=== PATIENT | female | born 1960 | race Caucasian/White ===

== ENCOUNTER → 2017-11-08 07:55 | Outpatient (CLI) | payer BC, SELFPAY ==
--- NOTE | 2017-11-08 08:30 | MRI_ITS ---
STUDY: MRI BRAIN WITH AND WITHOUT CONTRAST REASON FOR EXAM: Female, 57 years old. Ataxia, hearing loss, tinnitus the bilateral ureters TECHNIQUE: Standardized multiplanar fat and water weighted pulse sequences were obtained. 10 ml of Gadavist contrast material was administered intravenously for the contrast portion of the examination. COMPARISON: None. FINDINGS: There is mild cerebral atrophy with widening of the extra-axial spaces and ventricular dilatation. There are a limited number of small white matter hyperintensities, distributed throughout the deep white matter tracts of the cerebral hemispheres, consistent with mild chronic white matter ischemic changes. There is no evidence for recent intracranial ischemia or other cause of cytotoxic edema on diffusion weighted imaging (DWI). Normal bilateral basal ganglia. Normal thalami. There is no extra-axial fluid accumulation. Normal flow voids within the major intracranial circulation suggesting patency by spin echo criteria. Normal venous enhancement. There is no enhancing intra-axial or extra-axial abnormality. Normal sella turcica, pituitary gland, infundibular stalk, optic chiasm and hypothalamus. Normal tectal plate and pineal gland. Normal midbrain, denisse and medulla. Normal cerebellum. Normal basal cisterns. Normal bilateral temporal bones. Normal bilateral internal auditory canals. No demonstrated orbital abnormality, within the constraints of a routine brain study. Mucosal thickening and fluid layering of the right maxillary sinus is present with near complete opacification. Normal calvarium and skull base. Normal visualized soft tissue structures. Normal visualized upper cervical spine. MRI/Brain W/WO Contrast IMPRESSION: 1. Senescent changes with no evidence of acute intracranial bleed, mass or ischemia. 2. No evidence of IAC abnormality or abnormal enhancement. 3. Right maxillary sinus disease, clinically correlate for congestive versus inflammatory process. Electronically Signed: Cesar Dominguez DO at 10:09 EDT , Service support ,
== END ==
PROVIDERS: Visit Provider Otolaryngology Otolaryngology/Facial Plastic Surgery
DX: H91.90 Unspecified hearing loss, unspecified ear (principal); H93.19 Tinnitus, unspecified ear; R27.0 Ataxia, unspecified
CPT/HCPCS: 70553; A9585

== ENCOUNTER → 2018-04-13 12:01 | Outpatient (CLI) | payer BC, SELFPAY ==
[2018-04-13 11:29] VITALS: BMI 33.0
[2018-04-13 12:51] LABS: Absolute Neutrophil Count 4.5 X10^3/uL (2.0-7.7); Basophil# 0.02 X10^3/uL; Basophil% 0.3 % (0-1); Eosinophil# 0.15 X10^3/uL; Eosinophils% 1.9 % (0-5); Hematocrit 42.9 % (37-47); Hemoglobin 13.8 g/dl (12.0-15.0); Lymphocyte % 36.5 % (19-41); Mean Corp Hgb Conc 32.2 g/gl (32-36); Mean Corpuscular Hgb 29.7 pg (27.0-32.0); Mean Corpuscular Volume 92.3 fL (81-99); Mean Platelet Vol. 9.7 fl (6.2-12.0); Monocyte# 0.38 X10^3/uL; Monocyte% 4.8 % (0-10); Neutrophil # 4.49 X10^3/uL (2.7-7.7); Neutrophil % 56.4 % (47-70); Platelet Count 227 K/mm3 (150-450); RBC Distribution Width CV 13.6 % (11.6-14.6); RBC Distribution Width SD 45.6 fl (35.1-43.9); Red Blood Count 4.65 M/mm3 (4.2-5.4)
[2018-04-13 12:58] LABS: POSITIVE COUNT NO; POSITIVE DIFFERENTIAL NO; POSITIVE MORPHOLOGY NO
[2018-04-13 13:03] LABS: Hemoglobin A1c 7.1 % (4.2-6.3)
[2018-04-13 13:21] LABS: ALB/GLOB Ratio 0.9 RATIO (0.9-2.4); AST(SGOT) 15 U/L (15-37); Alanine Aminotransfer ALT/SGPT 22 U/L (13-56); Albumin, Serum 3.7 g/dL (3.2-5.0); Alkaline Phosphatase 108 U/L (45-117); Anion Gap 7 (5-15); BUN 11 mg/dL (7-18); BUN/Creat Ratio 14.5 RATIO (10-20); Calcium,Total 8.9 mg/dL (8.5-10.1); Chloride 107 mmol/L (98-107); Cholesterol 163 mg/dL (200); Creatinine, Serum 0.76 mg/dL (0.55-1.02); EST Glomerular Filtration Rate 83 mL/min (>60); Est Glom Filt Rate - Afr Amer 101 mL/min (>60); Glucose 145 mg/dL (74-106); High Density Lipoprotein 65 mg/dL; Potassium 4.3 mmol/L (3.5-5.1); Protein, Total 7.7 g/dL (6.4-8.2); Sodium Level 139 mmol/L (136-145); Triglycerides 217 mg/dL; Very Low Density Lipoprotein 43 mg/dL (5-40)
== END ==
PROVIDERS: PCP Internal Medicine; Visit Provider Internal Medicine
DX: E78.5 Hyperlipidemia, unspecified (principal); I10 Essential (primary) hypertension; E11.9 Type 2 diabetes mellitus without complications
CPT/HCPCS: 36415; 80053; 80061; 83036; 85025

== ENCOUNTER 2018-06-11 09:45 | Outpatient (RCR) | payer BC, SELFPAY ==
[2018-05-22 09:27] VITALS: BMI 33.0
[2018-05-27 11:02] VITALS: BP 138/70; PULSE 69; RESP 16; TEMP 36.6; BMI 33.0
--- NOTE | 2018-05-27 12:00 | PCM.WC.HP ---
(1) Skin ulcer of female breast Status: Acute Current Visit: Yes Code(s): N61.1 - Abscess of the breast and nipple Comment: With fat layer exposed. (2) Type 2 diabetes mellitus Status: Chronic Current Visit: Yes Code(s): E11.9 - Type 2 diabetes mellitus without complications History of Present Illness Date of Service: 05/27/18 Chief Complaint: Nonhealing ulcer. History of Wound: Ms. jeffrey Bishop is a 58-year-old with past medical history of diabetes mellitus type 2 and tobacco use who was referred to the wound center from my office due to an acute skin ulcer of her right breast. Initially started out as a boil and progressed to ulcer with significant drainage. Was seen at the office about a week ago,started on silver cell dressing and antibiotics. She states that drainage has improved. She denies chills, fever or feeling of unwell. Past Medical History Past Medical History: Chronic Problems (Last Reviewed 05/22/18 @ 09:26 by Duyen Chan) Arrhythmia (Chronic) Type 2 diabetes mellitus (Chronic) Dermatitis (Chronic) Hypertension (Chronic) Allergies/Adverse Reactions: Allergies ENVIRONMENTAL Allergy (Uncoded 05/27/18 11:27) Unknown Home Medications: Ambulatory Orders Medication Instructions Recorded aspirin 81 mg chewable tablet 81 mg PO DAILY 01/14/18 atorvastatin 20 mg tablet 20 mg PO DAILY 01/14/18 cholecalciferol (vitamin D3) 1,000 1,000 unit PO DAILY 01/14/18 unit capsule metformin 500 mg tablet 2,000 mg PO QHS tab 01/14/18 metoprolol tartrate 25 mg tablet 25 mg PO DAILY tab 01/14/18 progesterone micronized 200 mg 200 mg PO QHS 01/14/18 capsule sertraline 50 mg tablet 50 mg PO DAILY 01/14/18 sotalol 160 mg tablet 160 mg PO Q12H 01/14/18 fluticasone propionate 50 2 spray INTRANASAL DAILY #47.4 g 02/13/18 mcg/actuation nasal spray,suspension trazodone 50 mg tablet 25 mg PO DAILY PRN #30 tab 04/13/18 triamcinolone acetonide 0.025 % 1 applic TOPICAL DAILY #454 g 04/13/18 topical ointment blood sugar diagnostic strips See Dose Instructions .ROUTE 04/17/18 .MEDSUPPLY #50 ea blood-glucose meter kit See Dose Instructions .ROUTE 04/17/18 .MEDSUPPLY #1 ea lancets 28 gauge See Dose Instructions .ROUTE 04/17/18 .MEDSUPPLY #50 ea amoxicillin 875 mg-potassium 1 tab PO Q12H #14 tab 05/22/18 clavulanate 125 mg tablet doxycycline hyclate 100 mg capsule 100 mg PO BID #14 cap 05/22/18 Smoking Status: Current every day smoker Review of Systems Constitutional: Denies: Anorexia, Chills, Fever Eyes: Denies: Blurred vision HEENT: Denies: Difficulty Hearing, Difficulty Swallowing Cardiovascular: Denies: Chest Pain, Chest Pressure Respiratory: Denies: Hemoptysis Genitourinary: Denies: Hematuria Skin: Denies: Jaundice - Physical Exam Vital Signs Temp Pulse Resp BP 98 F 69 16 138/70 H 05/27/18 11:02 05/27/18 11:02 05/27/18 11:02 05/27/18 11:02 General: Alert, Oriented x3, Cooperative, No apparent distress HEENT: Atraumatic, Normocephalic Oral: Moist Mucosa Neck: Supple Lungs: Normal air movement Cardiovascular: Regular rate, Regular Rhythm Abdomen: Soft, Non Tender Extremities: No cyanosis Skin: Ulcer/ Wound Wound Measurements and Assessment WC - Nurse 1 - General Ulcer Measurement Start: 05/27/18 11:01 Freq: Status: Active Protocol: Activity Type Activity Date Activity User E-Sign Co-Sign Detail Recorded Client Recorded Date Recorded By Document 05/27/18 11:02 [facility] [id number] 05/27/18 11:11 [facility] 05/27/18 11:02 Wound Center Nurse 1 [Ulcer Assessment] #1- RT BREAST -Combined with other wound No -Current Size (cm) - Length 1.4 -Current Size (cm) - Width 1.7 -Current Size (cm) - Depth 0.2 -Total Square Cm 2.38 -Date of Last Picture (Recall this 05/27/18 field) -Photo Taken Yes -Epithelialization None Present -Tunneling No -Undermining/Tunneling No -Circular Undermining No -Classification - Thickness Full Thickness without Exposed Support Structure -Exudate Amt Small -Exudate Type Serosanguineous -Wound Margin Distinct, Outline Attached -Granulation Amt Medium (34-66%) -Granulation Quality [place] -Slough/Fibrin Yes -Necrosis Amt Large (67-100%) -Necrotic Tissue Type Adherent Slough -Texture (Marleny-wound Skin Appearance) Assessed -Moisture (Marleny-wound Skin Appearance Assessed ) -Color (Marleny-wound Skin Appearance) Erythema -Temperature (Marleny-wound Skin No Abnormality Appearance) (Pt Warm) -Tenderness on Palpation (Marleny-wound No Skin Appearance) -Ulcer Cleansing Rinsed/ Irrigated with Saline -Foul Odor after Cleansing No -Anesthetic Used 5% Lidocaine Gel - Nurse 2 - General Ulcer CM Notes Start: 05/27/18 11:01 Freq: Status: Active Protocol: Activity Type Activity Date Activity User E-Sign Co-Sign Detail Recorded Client Recorded Date Recorded By Document 05/27/18 11:22 MW [id number] 05/27/18 11:32 MW 05/27/18 11:22 Wound Center Nurse 2 [Procedure/Treatment] -Time 11:23 -Correct Patient Yes -Correct Side, Site, Position Yes -Correct Procedure Yes -Procedure Performed Yes -Type of Procedure Debridement -Clinical Debridement Subcutaneous -Post Debridement Size (cm) - Length 1.7 -Post Debridement Size (cm) - Width 1.7 -Post Debridement Size (cm) - Depth 0.2 -Total Square Cm 2.89 -Wound/Ulcer Outcome Not Healed -Ulcer Cleansing Rinsed/ Irrigated with Saline -Foul Odor after Cleansing No -Bioengineered Tissue No -Bleeding Controlled with Pressure -Offloading No -Treatment Response Procedure Tolerated Well [See Physician Procedure note for Specifics] Pain Scale: 0-10 Numeric [Pain] -Is Patient Pain Free? Yes Musculoskeletal: No Muscle Wasting Neurological: Cranial nerves II-XII grossly intact Psych/Mental Status: Normal Affect Debridement Note Post-Debridement Measurements/Treatment - Nurse 2 - General Ulcer CM Notes Start: 05/27/18 11:01 Freq: Status: Active Protocol: Activity Type Activity Date Activity User E-Sign Co-Sign Detail Recorded Client Recorded Date Recorded By Document 05/27/18 11:22 MW [id number] 05/27/18 11:32 MW 05/27/18 11:22 Wound Center Nurse 2 #1- RT BREAST -Time 11:23 -Correct Patient Yes -Correct Side, Site, Position Yes -Correct Procedure Yes -Procedure Performed Yes -Type of Procedure Debridement -Clinical Debridement Subcutaneous -Post Debridement Size (cm) - Length 1.7 -Post Debridement Size (cm) - Width 1.7 -Post Debridement Size (cm) - Depth 0.2 -Total Square Cm 2.89 -Wound/Ulcer Outcome Not Healed -Ulcer Cleansing Rinsed/ Irrigated with Saline -Foul Odor after Cleansing No -Bioengineered Tissue No -Bleeding Controlled with Pressure -Offloading No -Treatment Response Procedure Tolerated Well Pain Scale: 0-10 Numeric Is Patient Pain Free? Yes Wound debrided: Right breast Wound Grade/Stage: Stage II Type of Debridement: Excisional debridement Anesthesia Used: 4% Lidocaine Solution Depth: Down to and including healthy tissue, in the subcutaneous layer Percentage of wound debrided: 100 Instrument Used: 3mm curette Tissue Removed: Slough and devitalized tissue Severity: Fat Layer Exposed Amount of bleeding with debridement: Mild Bleeding Controlled with: Pressure Patient tolerated procedure well Assessment/Plan Active Problems (Last Reviewed 05/22/18 @ 09:26 by Duyen Chan) Skin ulcer of female breast (Acute) With fat layer exposed. Type 2 diabetes mellitus (Chronic) Assessment: Acute right posterior breast ulcer with fat layer exposed. Type 2 diabetes mellitus. Plan: Debridement done as documented above. Procedure was well-tolerated. No significant drainage appreciated today. Ulcer appears shrimp cleaner. Switch to Promogran with Adaptic over top. Change daily to twice daily depending on drainage. Optimal blood sugar control and increased protein intake also recommended. All her questions were answered and she was advised to call with any questions or concerns. Follow-up in 1 week. This note was generated with [employer] software. It may contain incorrect words, spelling, and punctuation that were not noted in checking the note before signing.
--- NOTE | 2018-05-27 12:04 | HP.PCM_ITS ---
(1) Skin ulcer of female breast Status: Acute Current Visit: Yes Code(s): N61.1 - Abscess of the breast and nipple Comment: With fat layer exposed. (2) Type 2 diabetes mellitus Status: Chronic Current Visit: Yes Code(s): E11.9 - Type 2 diabetes mellitus without complications History of Present Illness Date of Service: 05/27/18 Chief Complaint: Nonhealing ulcer. History of Wound: Ms. jeffrey Bishop is a 58-year-old with past medical history of diabetes mellitus type 2 and tobacco use who was referred to the wound center from my office due to an acute skin ulcer of her right breast. Initially started out as a boil and progressed to ulcer with significant drainage. Was se en at the office about a week ago,started on silver cell dressing and antibiotics. She states that drainage has improved. She denies chills, fever or feeling of unwell. Past Medical History Past Medical History: Chronic Problems (Last Reviewed 05/22/18 @ 09:26 by Duyen Chan) Arrhythmia (Chronic) Type 2 diabetes mellitus (Chronic) Dermatitis (Chronic) Hypertension (Chronic) Allergies/Adverse Reactions: Allergies ENVIRONMENTAL Allergy (Uncoded 05/27/18 11:27) Unknown Home Medications: Ambulatory Orders Medication Instructions Recorded aspirin 81 mg chewable tablet 81 mg PO DAILY 01/14/18 atorvastatin 20 mg tablet 20 mg PO DAILY 01/14/18 cholecalciferol (vitamin D3) 1,000 1,000 unit PO DAILY 01/14/18 unit capsule metformin 500 mg tablet 2,000 mg PO QHS tab 01/14/18 metoprolol tartrate 25 mg tablet 25 mg PO DAILY tab 01/14/18 progesterone micronized 200 mg 200 mg PO QHS 01/14/18 capsule sertraline 50 mg tablet 50 mg PO DAILY 01/14/18 sotalol 160 mg tablet 160 mg PO Q12H 01/14/18 fluticasone propionate 50 2 spray INTRANASAL DAILY #47.4 g 02/13/18 mcg/actuation nasal spray,suspension trazodone 50 mg tablet 25 mg PO DAILY PRN #30 tab 04/13/18 triamcinolone acetonide 0.025 % 1 applic TOPICAL DAILY #454 g 04/13/18 topical ointment blood sugar diagnostic strips See Dose Instructions .ROUTE 04/17/18 .MEDSUPPLY #50 ea blood-glucose meter kit See Dose Instructions .ROUTE 04/17/18 .MEDSUPPLY #1 ea lancets 28 gauge See Dose Instructions .ROUTE 04/17/18 .MEDSUPPLY #50 ea amoxicillin 875 mg-potassium 1 tab PO Q12H #14 tab 05/22/18 clavulanate 125 mg tablet doxycycline hyclate 100 mg capsule 100 mg PO BID #14 cap 05/22/18 Smoking Status: Current every day smoker Review of Systems Constitutional: Denies: Anorexia, Chills, Fever Eyes: Denies: Blurred vision HEENT: Denies: Difficulty Hearing, Difficulty Swallowing Cardiovascular: Denies: Chest Pain, Chest Pressure Respiratory: Denies: Hemoptysis Genitourinary: Denies: Hematuria Skin: Denies: Jaundice - Physical Exam Vital Signs Temp Pulse Resp BP 98 F 69 16 138/70 H 05/27/18 11:02 05/27/18 11:02 05/27/18 11:02 05/27/18 11:02 General: Alert, Oriented x3, Cooperative, No apparent distress HEENT: Atraumatic, Normocephalic Oral: Moist Mucosa Neck: Supple Lungs: Normal air movement Cardiovascular: Regular rate, Regular Rhythm Abdomen: Soft, Non Tender Extremities: No cyanosis Skin: Ulcer/ Wound Wound Measurements and Assessment WC - Nurse 1 - General Ulcer Measurement Start: 05/27/18 11:01 Freq: Status: Active Protocol: Activity Type Activity Date Activity User E-Sign Co-Sign Detail Recorded Client Recorded Date Recorded By Document 05/27/18 11:02 [facility] [id number] 05/27/18 11:11 [facility] 05/27/18 11:02 Wound Center Nurse 1 [Ulcer Assessment] #1- RT BREAST -Combined with other wound No -Current Size (cm) - Length 1.4 -Current Size (cm) - Width 1.7 -Current Size (cm) - Depth 0.2 -Total Square Cm 2.38 -Date of Last Picture (Recall this 05/27/18 field) -Photo Taken Yes -Epithelialization None Present -Tunneling No -Undermining/Tunneling No -Circular Undermining No -Classification - Thickness Full Thickness without Exposed Support Structure -Exudate Amt Small -Exudate Type Serosanguineous -Wound Margin Distinct, Outline Attached -Granulation Amt Medium (34-66%) -Granulation Quality [place] -Slough/Fibrin Yes -Necrosis Amt Large (67-100%) -Necrotic Tissue Type Adherent Slough -Texture (Marleny-wound Skin Appearance) Assessed -Moisture (Marleny-wound Skin Appearance Assessed ) -Color (Marleny-wound Skin Appearance) Erythema -Temperature (Marleny-wound Skin No Abnormality Appearance) (Pt Warm) -Tenderness on Palpation (Marleny-wound No Skin Appearance) -Ulcer Cleansing Rinsed/ Irrigated with Saline -Foul Odor after Cleansing No -Anesthetic Used 5% Lidocaine Gel WC - Nurse 2 - General Ulcer CM Notes Start: 05/27/18 11:01 Freq: Status: Active Protocol: Activity Type Activity Date Activity User E-Sign Co-Sign Detail Recorded Client Recorded Date Recorded By Document 05/27/18 11:22 MW [id number] 05/27/18 11:32 MW 05/27/18 11:22 Wound Center Nurse 2 [Procedure/Treatment] -Time 11:23 -Correct Patient Yes -Correct Side, Site, Position Yes -Correct Procedure Yes -Procedure Performed Yes -Type of Procedure Debridement -Clinical Debridement Subcutaneous -Post Debridement Size (cm) - Length 1.7 -Post Debridement Size (cm) - Width 1.7 -Post Debridement Size (cm) - Depth 0.2 -Total Square Cm 2.89 -Wound/Ulcer Outcome Not Healed -Ulcer Cleansing Rinsed/ Irrigated with Saline -Foul Odor after Cleansing No -Bioengineered Tissue No -Bleeding Controlled with Pressure -Offloading No -Treatment Response Procedure Tolerated Well [See Physician Procedure note for Specifics] Pain Scale: 0-10 Numeric [Pain] -Is Patient Pain Free? Yes Musculoskeletal: No Muscle Wasting Neurological: Cranial nerves II-XII grossly intact Psych/Mental Status: Normal Affect Debridement Note Post-Debridement Measurements/Treatment WC - Nurse 2 - General Ulcer CM Notes Start: 05/27/18 11:01 Freq: Status: Active Protocol: Activity Type Activity Date Activity User E-Sign Co-Sign Detail Recorded Client Recorded Date Recorded By Document 05/27/18 11:22 MW [id number] 05/27/18 11:32 MW 05/27/18 11:22 Wound Center Nurse 2 #1- RT BREAST -Time 11:23 -Correct Patient Yes -Correct Side, Site, Position Yes -Correct Procedure Yes -Procedure Performed Yes -Type of Procedure Debridement -Clinical Debridement Subcutaneous -Post Debridement Size (cm) - Length 1.7 -Post Debridement Size (cm) - Width 1.7 -Post Debridement Size (cm) - Depth 0.2 -Total Square Cm 2.89 -Wound/Ulcer Outcome Not Healed -Ulcer Cleansing Rinsed/ Irrigated with Saline -Foul Odor after Cleansing No -Bioengineered Tissue No -Bleeding Controlled with Pressure -Offloading No -Treatment Response Procedure Tolerated Well Pain Scale: 0-10 Numeric Is Patient Pain Free? Yes Wound debrided: Right breast Wound Grade/Stage: Stage II Type of Debridement: Excisional debridement Anesthesia Used: 4% Lidocaine Solution Depth: Down to and including healthy tissue, in the subcutaneous layer Percentage of wound debrided: 100 Instrument Used: 3mm curette Tissue Removed: Slough and devitalized tissue Severity: Fat Layer Exposed Amount of bleeding with debridement: Mild Bleeding Controlled with: Pressure Patient tolerated procedure well Assessment/Plan Active Problems (Last Reviewed 05/22/18 @ 09:26 by Duyen Chan) Skin ulcer of female breast (Acute) With fat layer exposed. Type 2 diabetes mellitus (Chronic) Assessment: Acute right posterior breast ulcer with fat layer exposed. Type 2 diabetes mellitus. Plan: Debridement done as documented above. Procedure was well-tolerated. No significant drainage appreciated today. Ulcer appears assembly cleaner. Switch to Promogran with Adaptic over top. Change daily to twice daily depending on drainage. Optimal blood sugar control and increased protein intake also recommended. All her questions were answered and she was advised to call with any questions or concerns. Follow-up in 1 week. This note was generated with [employer] software. It may contain incorrect words, spelling, and punctuation that were not noted in checking the note before signing.
[2018-06-11 09:52] VITALS: BP 122/75; PULSE 66; RESP 16; TEMP 36.7; BMI 33.0
--- NOTE | 2018-06-11 11:09 | PCM.WC.PN ---
(1) Skin ulcer of female breast Status: Acute Current Visit: Yes Code(s): N61.1 - Abscess of the breast and nipple Comment: With fat layer exposed. (2) Type 2 diabetes mellitus Status: Chronic Current Visit: Yes Code(s): E11.9 - Type 2 diabetes mellitus without complications Type of Wound Chief Complaint: Nonhealing ulcer. History of Wound: Ms. jeffrey Bishop is a 58-year-old with past medical history of diabetes mellitus type 2 and tobacco use who was referred to the wound center from my office due to an acute skin ulcer of her right breast. Initially started out as a boil and progressed to ulcer with significant drainage. Was seen at the office about a week ago,started on silver cell dressing and antibiotics. She states that drainage has improved. She denies chills, fever or feeling of unwell. Progress of Wound: Healed. - Physical Exam Vital Signs Temp Pulse Resp BP 98.0 F 66 16 122/75 H 06/11/18 09:52 06/11/18 09:52 06/11/18 09:52 06/11/18 09:52 General: Alert, Oriented x3, Cooperative, No apparent distress HEENT: Atraumatic, Normocephalic Oral: Moist Mucosa Neck: Supple Lungs: Normal air movement Abdomen: Non Tender, Obese Extremities: Cyanosis Wound Measurements and Assessment WC - Nurse 1 - General Ulcer Measurement Start: 05/27/18 11:01 Freq: Status: Active Protocol: Activity Type Activity Date Activity User E-Sign Co-Sign Detail Recorded Client Recorded Date Recorded By Document 06/11/18 09:52 [address] [id number] 06/11/18 09:54 CT 06/11/18 09:52 Wound Center Nurse 1 [Ulcer Assessment] #1- RT BREAST -Current Size (cm) - Length 0.1 -Current Size (cm) - Width 0.1 -Current Size (cm) - Depth 0.1 -Total Square Cm 0.01 WC - Nurse 2 - General Ulcer CM Notes Start: 05/27/18 11:01 Freq: Status: Active Protocol: Activity Type Activity Date Activity User E-Sign Co-Sign Detail Recorded Client Recorded Date Recorded By Document 06/11/18 10:40 MW [id number] 06/11/18 10:41 MW 06/11/18 10:40 Wound Center Nurse 2 [Procedure/Treatment] -Time 10:40 -Correct Patient Yes -Correct Side, Site, Position Yes -Correct Procedure Yes -Procedure Performed No -Post Debridement Size (cm) - Length 0 -Post Debridement Size (cm) - Width 0 -Post Debridement Size (cm) - Depth 0 -Total Square Cm 0 -Wound/Ulcer Outcome Healed- Epithelialized -Ulcer Cleansing Not Cleansed -Foul Odor after Cleansing No -Bioengineered Tissue No -Bleeding Controlled with NA -Offloading No -Treatment Response Procedure Tolerated Well [See Physician Procedure note for Specifics] Pain Scale: 0-10 Numeric [Pain] -Is Patient Pain Free? Yes Neurological: Cranial nerves II-XII grossly intact Psych/Mental Status: Normal Affect Debridement Note Post-Debridement Measurements/Treatment WC - Nurse 2 - General Ulcer CM Notes Start: 05/27/18 11:01 Freq: Status: Active Protocol: Activity Type Activity Date Activity User E-Sign Co-Sign Detail Recorded Client Recorded Date Recorded By Document 05/27/18 11:22 MW [id number] 05/27/18 11:32 MW Document 06/11/18 10:40 MW [id number] 06/11/18 10:41 MW 05/27/18 06/11/18 11:22 10:40 Wound Center Nurse 2 #1- RT BREAST -Time 11:23 10:40 -Correct Patient Yes Yes -Correct Side, Site, Position Yes Yes -Correct Procedure Yes Yes -Procedure Performed Yes No -Type of Procedure Debridement -Clinical Debridement Subcutaneous -Post Debridement Size (cm) - Length 1.7 0 -Post Debridement Size (cm) - Width 1.7 0 -Post Debridement Size (cm) - Depth 0.2 0 -Total Square Cm 2.89 0 -Wound/Ulcer Outcome Not Healed Healed- Epithelialized -Ulcer Cleansing Rinsed/ Not Cleansed Irrigated with Saline -Foul Odor after Cleansing No No -Bioengineered Tissue No No -Bleeding Controlled with Pressure NA -Offloading No No -Treatment Response Procedure Procedure Tolerated Well Tolerated Well Pain Scale: 0-10 Numeric Is Patient Pain Free? Yes Yes No debridement was completed today Assessment/Plan Active Problems (Last Reviewed 05/22/18 @ 09:26 by Duyen Chan) Skin ulcer of female breast (Acute) With fat layer exposed. Type 2 diabetes mellitus (Chronic) Assessment: Acute right posterior breast ulcer with fat layer exposed. Type 2 diabetes mellitus. Plan: Healed. No concerns at this time. Continue adaptic over top for 1 week. Discharged from the wound clinic. Follow up with me at the office in 1 week. Follow-up in 1 week. This note was generated with [employer] dictation software. It may contain incorrect words, spelling, and punctuation that were not noted in checking the note before signing.
--- NOTE | 2018-06-11 11:13 | PN.PCM_ITS ---
(1) Skin ulcer of female breast Status: Acute Current Visit: Yes Code(s): N61.1 - Abscess of the breast and nipple Comment: With fat layer exposed. (2) Type 2 diabetes mellitus Status: Chronic Current Visit: Yes Code(s): E11.9 - Type 2 diabetes mellitus without complications Type of Wound Chief Complaint: Nonhealing ulcer. History of Wound: Ms. jeffrey Bishop is a 58-year-old with past medical history of diabetes mellitus type 2 and tobacco use who was referred to the wound center from my office due to an acute skin ulcer of her right breast. Initially started out as a boil and progressed to ulcer with significant drainage. Was seen at the office about a week ago,started on silver cell dressing and antibiotics. She states that drainage has improved. She denies chills, fever or feeling of unwell. Progress of Wound: Healed. - Physical Exam Vital Signs Temp Pulse Resp BP 98.0 F 66 16 122/75 H 06/11/18 09:52 06/11/18 09:52 06/11/18 09:52 06/11/18 09:52 General: Alert, Oriented x3, Cooperative, No apparent distress HEENT: Atraumatic, Normocephalic Oral: Moist Mucosa Neck: Supple Lungs: Normal air movement Abdomen: Non Tender, Obese Extremities: Cyanosis Wound Measurements and Assessment WC - Nurse 1 - General Ulcer Measurement Start: 05/27/18 11:01 Freq: Status: Active Protocol: Activity Type Activity Date Activity User E-Sign Co-Sign Detail Recorded Client Recorded Date Recorded By Document 06/11/18 09:52 ND [id number] 06/11/18 09:54 ND 06/11/18 09:52 Wound Center Nurse 1 [Ulcer Assessment] #1- RT BREAST -Current Size (cm) - Length 0.1 -Current Size (cm) - Width 0.1 -Current Size (cm) - Depth 0.1 -Total Square Cm 0.01 WC - Nurse 2 - General Ulcer CM Notes Start: 05/27/18 11:01 Freq: Status: Active Protocol: Activity Type Activity Date Activity User E-Sign Co-Sign Detail Recorded Client Recorded Date Recorded By Document 06/11/18 10:40 MW [id number] 06/11/18 10:41 MW 06/11/18 10:40 Wound Center Nurse 2 [Procedure/Treatment] -Time 10:40 -Correct Patient Yes -Correct Side, Site, Position Yes -Correct Procedure Yes -Procedure Performed No -Post Debridement Size (cm) - Length 0 -Post Debridement Size (cm) - Width 0 -Post Debridement Size (cm) - Depth 0 -Total Square Cm 0 -Wound/Ulcer Outcome Healed- Epithelialized -Ulcer Cleansing Not Cleansed -Foul Odor after Cleansing No -Bioengineered Tissue No -Bleeding Controlled with NA -Offloading No -Treatment Response Procedure Tolerated Well [See Physician Procedure note for Specifics] Pain Scale: 0-10 Numeric [Pain] -Is Patient Pain Free? Yes Neurological: Cranial nerves II-XII grossly intact Psych/Mental Status: Normal Affect Debridement Note Post-Debridement Measurements/Treatment WC - Nurse 2 - General Ulcer CM Notes Start: 05/27/18 11:01 Freq: Status: Active Protocol: Activity Type Activity Date Activity User E-Sign Co-Sign Detail Recorded Client Recorded Date Recorded By Document 05/27/18 11:22 MW [id number] 05/27/18 11:32 MW Document 06/11/18 10:40 MW [id number] 06/11/18 10:41 MW 05/27/18 06/11/18 11:22 10:40 Wound Center Nurse 2 #1- RT BREAST -Time 11:23 10:40 -Correct Patient Yes Yes -Correct Side, Site, Position Yes Yes -Correct Procedure Yes Yes -Procedure Performed Yes No -Type of Procedure Debridement -Clinical Debridement Subcutaneous -Post Debridement Size (cm) - Length 1.7 0 -Post Debridement Size (cm) - Width 1.7 0 -Post Debridement Size (cm) - Depth 0.2 0 -Total Square Cm 2.89 0 -Wound/Ulcer Outcome Not Healed Healed- Epithelialized -Ulcer Cleansing Rinsed/ Not Cleansed Irrigated with Saline -Foul Odor after Cleansing No No -Bioengineered Tissue No No -Bleeding Controlled with Pressure NA -Offloading No No -Treatment Response Procedure Procedure Tolerated Well Tolerated Well Pain Scale: 0-10 Numeric Is Patient Pain Free? Yes Yes No debridement was completed today Assessment/Plan Active Problems (Last Reviewed 05/22/18 @ 09:26 by Duyen Chan) Skin ulcer of female breast (Acute) With fat layer exposed. Type 2 diabetes mellitus (Chronic) Assessment: Acute right posterior breast ulcer with fat layer exposed. Type 2 diabetes mellitus. Plan: Healed. No concerns at this time. Continue adaptic over top for 1 week. Discharged from the wound clinic. Follow up with me at the office in 1 week. Follow-up in 1 week. This note was generated with [employer] dictation software. It may contain incorrect words, spelling, and punctuation that were not noted in checking the note before signing.
== END 2018-06-23 23:59 ==
LOC: WC 09:45
PROVIDERS: Family Provider Internal Medicine; PCP Internal Medicine; Referring Provider Internal Medicine; Visit Provider Internal Medicine
DX: E11.622 Type 2 diabetes mellitus with other skin ulcer (principal); N61.1 Abscess of the breast and nipple; I10 Essential (primary) hypertension; Z79.899 Other long term (current) drug therapy; Z79.84 Long term (current) use of oral hypoglycemic drugs; Z79.82 Long term (current) use of aspirin; F17.200 Nicotine dependence, unspecified, uncomplicated; L98.492 Non-pressure chronic ulcer of skin of other sites with fat layer exposed
CPT/HCPCS: 11042; 99213; G0463

== ENCOUNTER → 2018-06-29 09:08 | Outpatient (CLI) | payer BC, SELFPAY ==
[2018-06-22 11:29] VITALS: BMI 33.0
--- NOTE | 2018-06-29 09:11 | BI_ITS ---
MAMMOGRAPHY - BILATERAL SCREENING REASON FOR EXAM: Female, 58 years old. Routine annual screening examination. PERTINENT HISTORY: Right abscess x5 weeks under the right breast at the approximate 6:00 position TECHNIQUE: Digital examination. Mediolateral oblique (MLO) and craniocaudad (CC) views of both breasts were obtained. CAD: CAD was performed on this study. COMPARISON: July 09, 2013. FINDINGS: Breast Composition: There are scattered areas of fibroglandular density. There are no dominant masses or suspicious calcifications. No mass or architectural distortion is identified within the right breast adjacent to or underlying the mammographic marker. There is a stable, hyperdense, left subareolar mass currently measuring 1.02 cm in maximum dimension. By report, this finding previously measured 1.3 cm in maximum dimension. Remote sonography of this finding indicated findings most compatible with a small fibroadenoma. There are a few, tiny, scattered microcalcifications. No other significant abnormalities are identified. BI/DIAG MAMM W/CAD, BILAT IMPRESSION: Stable bilateral screening mammogram. ASSESSMENT CATEGORY: BIRADS Category 2: Benign. A letter regarding these results will be sent to the patient by the facility within 30 days. FOLLOW UP RECOMMENDATION: Yearly follow up mammogram recommended. (A) Approximately 10% of breast cancers are not detected by mammography. A normal mammogram should not delay biopsy of a clinically suspicious abnormality. [id number] Electronically Signed: Sabas Combs MD at 11:17 EDT , Service support ,
--- NOTE | 2018-06-29 09:11 | US_ITS ---
STUDY: ULTRASOUND BREAST - RIGHT REASON FOR EXAM: Female, 58 years old. Prior right breast abscess. TECHNIQUE: Axial and longitudinal images of the RIGHT breast were performed with a high resolution ultrasound transducer. COMPARISON: July 09, 2013. FINDINGS: RIGHT Breast: There is a sessile, dermal-based, hypoechoic focus measuring 1.5 x 2.0 x 0.2 cm at the approximate 6:00 location 3 cm from the nipple. There is no posterior enhancement. There is no posterior shadowing. There is no morphologic change with probe compression. US/Breast Limited Unilateral IMPRESSION: Probably benign dermal-based lesion. Differential considerations include small area of fibrosis/scar versus a focal region of inflammatory skin induration versus sequela of inflamed dermal appendage. ASSESSMENT CATEGORY: BIRADS Category 3: Probably Benign - Short-Interval Follow-up Suggested. A letter regarding these results will be sent to the patient by the facility within 30 days. Electronically Signed: Sabas Combs MD at 10:55 EDT , Service support ,
== END ==
PROVIDERS: Family Provider Internal Medicine; PCP Internal Medicine; Visit Provider Internal Medicine
DX: N61.1 Abscess of the breast and nipple (principal)
CPT/HCPCS: 76642; 77062; 77066; G0279

== ENCOUNTER → 2018-07-07 11:11 | Outpatient (CLI) | payer BC, SELFPAY ==
[2018-07-07 10:23] VITALS: BMI 33.0
--- NOTE | 2018-07-07 11:14 | RAD_ITS ---
STUDY: X-RAY - LUMBAR SPINE REASON FOR EXAM: Female, 58 years old. Low back pain TECHNIQUE: 3 view(s) of the lumbar spine were obtained. COMPARISON: None FINDINGS: There is no evidence of fracture or dislocation in the lumbar spine. Mild disc space loss is present at the L4-L5 level and moderate disc space loss is present at the L5-S1 level. There is mild osteophytosis at the L5-S1 level. RAD/Lumbar Spine 2 or 3 Views IMPRESSION: No fracture or dislocation in the lumbar spine. Degenerative changes from L4 through S1, most prominent at the L5-S1 level. Electronically Signed: Shiv Limon, at 18:48 EDT Tel , Service support ,
== END ==
PROVIDERS: Family Provider Internal Medicine; PCP Internal Medicine; Referring Provider Nurse Practitioner Family; Visit Provider Nurse Practitioner Family
DX: M54.5 Low back pain (principal); R20.2 Paresthesia of skin
CPT/HCPCS: 72100

== ENCOUNTER → 2018-07-29 | Outpatient (CLI) | payer BC, SELFPAY ==
[2018-07-29 08:42] VITALS: BMI 33.0
--- NOTE | 2018-07-29 09:02 | RAD_ITS ---
STUDY: X-RAY - PELVIS AND RIGHT HIP REASON FOR EXAM: Female, 58 years old. Pain TECHNIQUE: 3 views of the pelvis and hip. COMPARISON: None. FINDINGS: There is a non-specific bowel gas pattern. Normal visualized soft tissue structures. Normal bilateral iliac wings, sacroiliac joints and visualized sacrum. Normal bilateral superior and inferior pubic rami. Normal pubic symphysis. Normal bilateral ischial tuberosities. Normal visualized femoral head. Normal acetabulum. Normal hip joint. RAD/HIP, UNI W/ Pelvis 2-3 Views IMPRESSION: Normal x-ray examination of the pelvis and hip. Electronically Signed: Aaron Wood MD at 16:55 EDT , Service support ,
== END | disposition home or self-care (01) ==
LOC: HPRAD 09:01
PROVIDERS: Family Provider Internal Medicine; PCP Internal Medicine; Referring Provider Orthopaedic Surgery; Visit Provider Orthopaedic Surgery
DX: M25.551 Pain in right hip (principal)
CPT/HCPCS: 73502

== ENCOUNTER → 2018-09-22 13:07 | Outpatient (CLI) | payer BC, SELFPAY ==
[2018-09-22 16:29] VITALS: BMI 32.5
[2018-09-23 14:30] LABS: Bacteria 0 SEEN /hpf (None Seen); Mucous, Urine 0 SEEN /hpf (<or=2+)
[2018-09-23 14:35] LABS: Color, Urine Yellow (Yellow); Glucose, Dipstick Normal (Normal); Ketone-Dipstick Negative (Negative); Leukocyte Esterase-Dipstick 25 /ul (Negative); Nitrite-Dipstick Negative (Negative); Occult Blood-Urine Negative /ul (Negative); Protein-Dipstick Negative (Negative); Specific Gravity, Urine 1.015 (1.002-1.030); Urine Bilirubin Dipstick Negative (Negative); Urine Clarity Clear (Clear); Urine Urobilinogen Normal (Normal)
[2018-09-23 14:43] LABS: Red Blood Cells-Urine 0-5 SEEN /hpf (0-5); Squamous Epithelial Cells - UA 0-5 SEEN /hpf (5-10); White Blood Cells 0-5 SEEN /hpf (0-5)
== END ==
PROVIDERS: Family Provider Internal Medicine; PCP Internal Medicine; Referring Provider Nurse Practitioner Family; Visit Provider Nurse Practitioner Family
DX: R31.9 Hematuria, unspecified (principal)
CPT/HCPCS: 81001

== ENCOUNTER → 2018-12-16 16:30 | Outpatient (CLI) | payer BC, SELFPAY ==
[2018-12-16 16:08] VITALS: BMI 32.5
== END ==
PROVIDERS: Family Provider Internal Medicine; PCP Internal Medicine; Visit Provider Nurse Practitioner Family
DX: L02.91 Cutaneous abscess, unspecified (principal)
CPT/HCPCS: 87070; 87075; 87077; 87186; 87205

== ENCOUNTER 2019-02-03 16:00 | Outpatient (RCR) | payer BC, SELFPAY ==
[2019-01-15 09:46] VITALS: BMI 30.8
== END 2019-02-23 23:59 ==
LOC: DC 16:00
PROVIDERS: Family Provider Internal Medicine; PCP Internal Medicine; Visit Provider Internal Medicine
DX: Z71.3 Dietary counseling and surveillance (principal); E11.9 Type 2 diabetes mellitus without complications
CPT/HCPCS: 97802; G0108

== ENCOUNTER → 2019-03-12 07:59 | Outpatient (CLI) | payer BC, SELFPAY ==
[2019-01-15 09:46] VITALS: BMI 30.8
[2019-03-12 12:31] LABS: Hematocrit 42.1 % (37-47); Hemoglobin 13.6 g/dL (12.0-15.0); Mean Corp Hgb Conc 32.3 g/dL (32-36); Mean Corpuscular Hgb 29.8 pg (27.0-32.0); Mean Corpuscular Volume 92.1 fL (81-99); Mean Platelet Vol. 9.6 fl (6.2-12.0); Platelet Count 226 K/mm3 (150-450); RBC Distribution Width CV 13.2 % (11.6-14.6); RBC Distribution Width SD 43.7 fl (35.1-43.9); Red Blood Count 4.57 M/mm3 (4.2-5.4); White Blood Count 7.3 K/mm3 (4.4-11.0)
[2019-03-12 13:42] LABS: AST(SGOT) 12 U/L (15-37); Alanine Aminotransfer ALT/SGPT 22 U/L (13-56); Albumin, Serum 3.8 g/dL (3.2-5.0); Alkaline Phosphatase 93 U/L (45-117); Anion Gap 7 (5-15); BUN 14 mg/dL (7-18); BUN/Creat Ratio 18.2 RATIO (10-20); Chloride 106 mmol/L (98-107); Cholesterol 167 mg/dL (200); Creatinine, Serum 0.77 mg/dL (0.55-1.02); EST Glomerular Filtration Rate 82 mL/min (>60); Est Glom Filt Rate - Afr Amer 99 mL/min (>60); Glucose 125 mg/dL (74-106); High Density Lipoprotein 66 mg/dL; Potassium 4.4 mmol/L (3.5-5.1); Protein, Total 7.8 g/dL (6.4-8.2); Sodium Level 139 mmol/L (136-145); Thyroid Stim Hormone (TSH) 1.76 uIU/mL (0.358-3.74); Triglycerides 159 mg/dL; Very Low Density Lipoprotein 32 mg/dL (5-40)
[2019-03-12 13:43] LABS: Microalbumin:Creatinine Ratio 12.1 mg/g CRE (<30 mg/g CRE)
== END ==
PROVIDERS: PCP Internal Medicine; Visit Provider Nurse Practitioner Family
DX: I10 Essential (primary) hypertension (principal); E11.9 Type 2 diabetes mellitus without complications; E78.5 Hyperlipidemia, unspecified
CPT/HCPCS: 36415; 80053; 80061; 82043; 82570; 84443; 85027

== ENCOUNTER → 2019-11-29 11:16 | Outpatient (CLI) | payer BC, SELFPAY ==
[2019-11-29 11:14] VITALS: BMI 30.8
[2019-11-29 11:17] LABS: Mucous, Urine 0 SEEN /hpf (<or=2+)
[2019-11-29 12:30] LABS: Color, Urine Yellow (Yellow); Glucose, Dipstick Normal (Normal); Ketone-Dipstick Negative (Negative); Leukocyte Esterase-Dipstick 500 /ul (Negative); Nitrite-Dipstick Negative (Negative); Occult Blood-Urine 250 /ul (Negative); Protein-Dipstick 15 mg/dl (Negative); Specific Gravity, Urine 1.015 (1.002-1.030); Urine Bilirubin Dipstick Negative (Negative); Urine Clarity Sl. Cloudy (Clear); Urine Urobilinogen Normal (Normal)
[2019-11-29 12:45] LABS: Bacteria 1+ /hpf (None Seen); Red Blood Cells-Urine 25-50 SEEN /hpf (0-5); Squamous Epithelial Cells - UA 0-5 SEEN /hpf (5-10); White Blood Cells 25-50 SEEN /hpf (0-5)
== END ==
PROVIDERS: PCP Internal Medicine; Visit Provider Internal Medicine
DX: R35.0 Frequency of micturition (principal); R31.9 Hematuria, unspecified
CPT/HCPCS: 81001; 87086; 87088; 87186

== ENCOUNTER → 2020-07-13 14:47 | Outpatient (CLI) | payer BC, SELFPAY ==
[2020-01-27 09:38] VITALS: BMI 34.0
[2020-07-14 12:46] LABS: Hepatitis B Surface Antibody Non-Reactive; Hepatitis B Surface Antigen Non-Reactive (Nonreactive); Hepatitis C Antibody Non-Reactive (Nonreactive)
[2020-07-16 07:06] LABS: QNTFERON TB Mitogen Value > 10.00 IU/mL (.); QNTFERON TB Nil Value 0.13 IU/mL (.); QNTFERON TB2+ Ag Value 0.13 IU/mL (.)
[2020-07-16 08:41] LABS: Hepatitis B Core Ab Total Negative (Negative); QNTIFERON TB Positive Criteria Negative (Negative)
== END ==
PROVIDERS: PCP Internal Medicine; Referring Provider Physician Assistant; Visit Provider Physician Assistant
DX: L73.2 Hidradenitis suppurativa (principal); Z79.899 Other long term (current) drug therapy; L40.0 Psoriasis vulgaris; M12.9 Arthropathy, unspecified; L40.8 Other psoriasis; L60.8 Other nail disorders; L57.0 Actinic keratosis; L82.1 Other seborrheic keratosis; L81.4 Other melanin hyperpigmentation; D22.5 Melanocytic nevi of trunk; Z71.89 Other specified counseling; L57.8 Other skin changes due to chronic exposure to nonionizing radiation; D23.61 Other benign neoplasm of skin of right upper limb, including shoulder; L73.8 Other specified follicular disorders
CPT/HCPCS: 36415; 86480; 86704; 86706; 86803; 87340

== ENCOUNTER 2020-10-31 08:32 | Emergency (ER) | payer BC, SELFPAY ==
[2020-10-31 08:33] VITALS: BP 164/94; PULSE 66; RESP 16; TEMP 36; O2SAT 100; BMI 33.0
[2020-10-31 09:11] LABS: Absolute Lymphocyte Count 2.48 X10^3/uL (0.83-4.51); Absolute Neutrophil Count 3.4 X10^3/uL (2.0-7.7); Basophil# 0.04 X10^3/uL; Basophil% 0.6 % (0-1); Eosinophil# 0.09 X10^3/uL; Eosinophils% 1.4 % (0-5); Hematocrit 41.5 % (37-47); Hemoglobin 13.1 g/dL (12.0-15.0); Lymphocyte # 2.48 X10^3/ul (0.83-4.51); Lymphocyte % 38.6 % (19-41); Mean Corp Hgb Conc 31.6 g/dL (32-36); Mean Corpuscular Hgb 28.9 pg (27.0-32.0); Mean Corpuscular Volume 91.6 fL (81-99); Mean Platelet Vol. 8.7 fl (6.2-12.0); Monocyte# 0.37 X10^3/uL; Monocyte% 5.8 % (0-10); NRBC Flagged by Analyzer 0 % (0-5); Neutrophil # 3.44 X10^3/uL (2.7-7.7); Neutrophil % 53.4 % (47-70); Platelet Count 206 K/mm3 (150-450); RBC Distribution Width CV 13.4 % (11.6-14.6); RBC Distribution Width SD 45.5 fl (35.1-43.9); Red Blood Count 4.53 M/mm3 (4.2-5.4); White Blood Count 6.4 K/mm3 (4.4-11.0)
[2020-10-31] MEDS: Ondansetron 4 MG/2 ML Vial IV (09:12)
[2020-10-31] MEDS: 0.9% Normal Saline 1,000 ML 1000 ML IV (09:15)
[2020-10-31 09:28] LABS: ALB/GLOB Ratio 0.9 RATIO (0.9-2.4); AST(SGOT) 15 U/L (15-37); Alanine Aminotransfer ALT/SGPT 27 U/L (13-56); Albumin, Serum 3.6 g/dL (3.2-5.0); Alkaline Phosphatase 104 U/L (45-117); Anion Gap 3 (5-15); BUN 11 mg/dL (7-18); BUN/Creat Ratio 14.4 RATIO (10-20); Calcium,Total 9.5 mg/dL (8.5-10.1); Chloride 107 mmol/L (98-107); Creatinine, Serum 0.76 mg/dL (0.55-1.02); EST Glomerular Filtration Rate 82 mL/min (>60); Est Glom Filt Rate - Afr Amer 99 mL/min (>60); Estimated Creatinine Clearance 86.19 ml/min; Globulin 4.2 g/dL (2.2-4.2); Glucose 127 mg/dL (74-106); Lipase 106 U/L (73-393); Potassium 4.3 mmol/L (3.5-5.1); Protein, Total 7.8 g/dL (6.4-8.2); Sodium Level 138 mmol/L (136-145)
[2020-10-31] MEDS: Famotidine 200 MG/20 ML MDV 20 MG in 0.9% Normal Saline (Pres. free 8 ML 300 MG IV (09:46)
--- NOTE | 2020-10-31 09:54 | EX.ED.DYSGE1 ---
HPI History of Present Illness Chief Complaint: Abd Pain Narrative Narrative: Patient presents with epigastric and right upper quadrant pain for the past 5 days it is intermittent and at times associated with eating. She has no fever or chills. The pain does not radiate to the back. She is post cholecystectomy. She has nausea but no vomiting. No diarrhea. No chest pain or shortness of breath. [facility] Medical History (Updated 10/31/20 @ 09:[address] Nasir Astudillo MD) Afib Asthma Diabetes Hyperlipemia Hypertension Meralgia paresthetica of right side JAVED (obstructive sleep apnea) Osteoarthritis Seasonal allergies Home Medications cholecalciferol (vitamin D3) 25 mcg (1,000 unit) capsule 1,000 unit PO DAILY 01/14/18 [History Last Taken Unknown] metoprolol tartrate 25 mg tablet 25 mg PO DAILY tab 01/14/18 [History Last Taken Unknown] sotalol 160 mg tablet 160 mg PO Q12H 01/14/18 [History Last Taken Unknown] fluticasone propionate 50 mcg/actuation nasal spray,suspension 2 spray INTRANASAL DAILY #47.4 g 02/13/18 [Rx Last Taken Unknown] blood sugar diagnostic #50 ea 12/23/18 [Rx Last Taken Unknown] lancets 28 gauge #50 ea 12/23/18 [Rx Last Taken Unknown] trazodone 50 mg tablet See Rx Instructions .ROUTE .COMPLEX #90 tab 01/15/19 [Rx Last Taken Unknown] bupropion HCl 150 mg tablet,12 hr sustained-release See Rx Instructions .ROUTE .COMPLEX #180 unspecified 07/06/19 [Rx Last Taken Unknown] albuterol sulfate 90 mcg/actuation aerosol inhaler 1 - 2 puff INHALATION Q6H PRN #8.5 g 12/07/19 [Rx Last Taken Unknown] metformin 500 mg tablet,extended release 24 hr 2,000 mg PO QPM tab 12/24/19 [History Last Taken Unknown] semaglutide 1 mg SC QWEEK 90 Days #10.4 ml 01/27/20 [Rx Last Taken Unknown] triamcinolone acetonide 0.025 % topical cream 1 applic TOPICAL BID #454 g 01/27/20 [Rx Last Taken Unknown] sertraline 50 mg tablet 50 mg PO DAILY #90 tab 04/25/20 [Rx Last Taken Unknown] apixaban 5 mg tablet 5 mg PO BID 05/02/20 [History Last Taken Unknown] cyclobenzaprine 10 mg tablet 5 - 10 mg PO HS PRN #30 tab 05/02/20 [Rx Last Taken Unknown] atorvastatin 20 mg tablet 20 mg PO DAILY #90 tab 08/31/20 [Rx Last Taken Unknown] omeprazole 40 mg PO DAILY #30 cap 10/31/20 [Rx Last Taken Unknown] Allergy/AdvReac Type Severity Reaction Status Date / Time ENVIRONMENTAL Allergy Unknown Uncoded 11/29/19 10:45 Family History Father Diabetes Heart disease Hyperlipemia Sister Depression Arthritis Mother Arthritis Hypertension Brother Diabetes Surgical History H/O section History of carpal tunnel release History of cholecystectomy History of hysterectomy Social History Smoking Status: Current every day smoker tobacco type: cigarettes alcohol intake: never substance use type: does not use what type of physical activity do you participate in: none ROS ROS ED ROS Narrative Past medical history: Reviewed, significant for history of hypertension, hyperlipidemia, diabetes, sleep apnea. Medications: Reviewed Social history: Noncontributory Review of systems: All systems negative except as indicated General: No fever Eyes: No visual changes ENT: No upper airway congestion, normal voice Neck: No neck pain Cardiovascular: No chest pain Respiratory: No shortness of breath or cough Gastrointestinal: Epigastric and right upper quadrant abdominal pain as in HPI Genitourinary: No dysuria Musculoskeletal: Denies myalgias no difficulty with ambulation Skin: No rash Neurological: No memory loss, confusion or any focal weakness Psych: No recent behavioral changes Hematologic: No easy bleeding or easy bruising EXAM Physical Exam Narrative Exam Narrative: Physical exam General: Well nourished, Well developed, No Acute Distress Head: Normocephalic, Atraumatic Eyes: Conjunctiva not pale ENT: Moist mucous membranes Neck: Supple, Nontender, No lymphadenopathy Cardiovascular: Regular rate, Regular rhythm Respiratory: No distress, CTA bilaterally Abdomen: Soft, there is epigastric and right upper quadrant abdominal pain. There is no guarding or rebound. Jacobs's is negative. No lower abdominal pain. No pain at McBurney's. No CVA tenderness. Back: Nontender, Normal Inspection. Negative for: CVA tenderness Extremities: Nontender, No edema Skin: Normal color, No rash Neurological: Alert, Normal Strength, Normal Sensation Psychological: Normal affect Const Vital Signs: 10/31/20 08:33 Temperature 96.8 F L Temperature Source Temporal Pulse Rate 66 Respiratory Rate 16 Blood Pressure 164/94 H Blood Pressure Mean 117 Pulse Ox 100 Oxygen Delivery Method Room Air MDM MDM MDM Narrative Medical decision making narrative: Patient has an unremarkable work-up, this is either peptic ulcer or gastritis likely. I will treat as such. At this time she does not have a gallbladder, she has epigastric pain with normal blood work, I do not believe imaging is warranted. Lab Data Labs: Laboratory Results - last 24 hr 10/31/20 10/31/20 09:05 09:05 WBC 6.4 RBC 4.53 Hgb 13.1 Hct 41.5 MCV 91.6 MCH 28.9 MCHC 31.6 L RDW Std Deviation 45.5 H RDW Coeff of Jaswant 13.4 Plt Count 206 MPV 8.7 Immature Gran % (Auto) 0.200 Neut % (Auto) 53.4 Lymph % (Auto) 38.6 [place] % (Auto) 5.8 Eos % (Auto) 1.4 Baso % (Auto) 0.6 Absolute Neuts (auto) 3.4 Absolute Lymphs (auto) 2.48 Nucleated RBC % 0 Sodium 138 Potassium 4.3 Chloride 107 Carbon Dioxide 28.0 Anion Gap 3 L BUN 11 Creatinine 0.76 Estim Creat Clear Calc 86.19 Est GFR (MDRD) Af Amer 99 Est GFR (MDRD) Non-Af 82 BUN/Creatinine Ratio 14.4 Glucose 127 H Calcium 9.5 Total Bilirubin 0.50 AST 15 ALT 27 Alkaline Phosphatase 104 Total Protein 7.8 Albumin 3.6 Globulin 4.2 Albumin/Globulin Ratio 0.9 Lipase 106 Discharge Plan Triage Chief Complaint: Abd Pain ED Provider: Nasir Astudillo Dx/Rx/DC Orders Clinical Impression: Abdominal pain Instructions: Abdominal Pain Prescriptions: New omeprazole 40 mg capsule,delayed release(DR/EC) 40 mg PO DAILY Qty: 30 RF: 0 No Action sotalol 160 mg tablet 160 mg PO Q12H RF: 0 metoprolol tartrate 25 mg tablet 25 mg PO DAILY RF: 0 cholecalciferol (vitamin D3) 1,000 unit capsule 1,000 unit PO DAILY RF: 0 (DME) lancets [FreeStyle Lancets] 28 gauge misc See Rx Instructions .ROUTE .MEDSUPPLY Qty: 50 RF: 11 (DME) FreeStyle Test Strip See Rx Instructions .ROUTE .MEDSUPPLY Qty: 50 RF: 11 Ozempic 0.25 mg or 0.5 mg(2 mg/1.5 mL) pen injector 1 mg SC QWEEK 90 Days Qty: 10.4 RF: 3 triamcinolone acetonide 0.025 % cream 1 applic TOPICAL BID Qty: 454 RF: 1 metformin [Glucophage XR] 500 mg tablet extended release 24 hr 2,000 mg PO QPM RF: 0 Eliquis 5 mg tablet 5 mg PO BID RF: 0 cyclobenzaprine 10 mg tablet 5 - 10 mg PO HS PRN (Reason: muscle spasm) Qty: 30 RF: 1 fluticasone propionate [Flonase Allergy Relief] 50 mcg/actuation spray,suspension 2 spray intranasal DAILY Qty: 47.4 RF: 1 trazodone 50 mg tablet See Rx Instructions .ROUTE .COMPLEX Qty: 90 RF: 1 bupropion HCl 150 mg tablet sustained-release 12 hr See Rx Instructions .ROUTE .COMPLEX Qty: 180 RF: 1 albuterol sulfate [ProAir HFA] 90 mcg/actuation HFA aerosol inhaler 1 - 2 puff inhalation Q6H PRN (Reason: shortness of breath or wheezing) Qty: 8.5 RF: 1 sertraline 50 mg tablet 50 mg PO DAILY Qty: 90 RF: 3 atorvastatin 20 mg tablet 20 mg PO DAILY Qty: 90 RF: 3 Primary Care Provider: Columba Quiroga Referrals: Columba Quiroga MD [Primary Care Provider] - 3-5 Days Disposition Disposition: Home, Self Care
== END 2020-10-31 11:26 | disposition home or self-care (01) ==
PROVIDERS: Emergency Provider Emergency Medicine; PCP Internal Medicine
DX: R10.9 Unspecified abdominal pain (principal); E11.9 Type 2 diabetes mellitus without complications; E78.5 Hyperlipidemia, unspecified; G47.33 Obstructive sleep apnea (adult) (pediatric); I48.91 Unspecified atrial fibrillation; I10 Essential (primary) hypertension; J45.909 Unspecified asthma, uncomplicated; F17.210 Nicotine dependence, cigarettes, uncomplicated; M19.90 Unspecified osteoarthritis, unspecified site; Z79.01 Long term (current) use of anticoagulants; Z79.84 Long term (current) use of oral hypoglycemic drugs; Z79.899 Other long term (current) drug therapy; Z90.49 Acquired absence of other specified parts of digestive tract
CPT/HCPCS: 80053; 83690; 85025; 99283; J7030; A4216; J2405; J3490

== ENCOUNTER → 2020-11-08 14:08 | Outpatient (CLI) | payer BC, SELFPAY ==
[2020-11-08 14:58] LABS: Absolute Lymphocyte Count 2.88 X10^3/uL (0.83-4.51); Absolute Neutrophil Count 2.9 X10^3/uL (2.0-7.7); Basophil# 0.05 X10^3/uL; Basophil% 0.8 % (0-1); Eosinophil# 0.09 X10^3/uL; Eosinophils% 1.5 % (0-5); Hematocrit 38.8 % (37-47); Hemoglobin 12.3 g/dL (12.0-15.0); Lymphocyte # 2.88 X10^3/ul (0.83-4.51); Lymphocyte % 46.5 % (19-41); Mean Corp Hgb Conc 31.7 g/dL (32-36); Mean Corpuscular Hgb 29.6 pg (27.0-32.0); Mean Corpuscular Volume 93.5 fL (81-99); Mean Platelet Vol. 9.2 fl (6.2-12.0); Monocyte# 0.31 X10^3/uL; NRBC Flagged by Analyzer 0 % (0-5); Neutrophil # 2.85 X10^3/uL (2.7-7.7); Platelet Count 201 K/mm3 (150-450); RBC Distribution Width CV 13.4 % (11.6-14.6); RBC Distribution Width SD 45.9 fl (35.1-43.9); Red Blood Count 4.15 M/mm3 (4.2-5.4); White Blood Count 6.2 K/mm3 (4.4-11.0)
[2020-11-08 15:19] LABS: Amylase 41 U/L (25-115); Anion Gap 3 (5-15); BUN 10 mg/dL (7-18); BUN/Creat Ratio 13.9 RATIO (10-20); Calcium,Total 9.6 mg/dL (8.5-10.1); Chloride 106 mmol/L (98-107); Creatinine, Serum 0.72 mg/dL (0.55-1.02); EST Glomerular Filtration Rate 88 mL/min (>60); Est Glom Filt Rate - Afr Amer 106 mL/min (>60); Glucose 96 mg/dL (74-106); Lipase 120 U/L (73-393); Potassium 4.4 mmol/L (3.5-5.1); Sodium Level 139 mmol/L (136-145)
== END ==
PROVIDERS: PCP Internal Medicine; Referring Provider Nurse Practitioner Family; Visit Provider Nurse Practitioner Family
DX: R19.7 Diarrhea, unspecified (principal); R10.9 Unspecified abdominal pain
CPT/HCPCS: 36415; 80048; 82150; 83690; 85025; 87635; U0005; U0003

== ENCOUNTER → 2020-11-09 09:34 | Outpatient (CLI) | payer BC, SELFPAY | PROVIDERS: PCP Internal Medicine; Referring Provider Nurse Practitioner Family; Visit Provider Nurse Practitioner Family | DX: R10.9 Unspecified abdominal pain (principal); R19.7 Diarrhea, unspecified | CPT/HCPCS: 87506 ==

== ENCOUNTER → 2021-01-29 12:14 | Outpatient (CLI) | payer BC, SELFPAY | PROVIDERS: PCP Internal Medicine; Referring Provider Physician Assistant; Visit Provider Physician Assistant | DX: L73.2 Hidradenitis suppurativa (principal); L02.224 Furuncle of groin | CPT/HCPCS: 87070; 87205 ==

== ENCOUNTER → 2022-03-18 | Outpatient (CLI) | payer BC, SELFPAY ==
[2022-03-18 12:13] LABS: Absolute Lymphocyte Count 2.27 X10^3/uL (0.83-4.51); Absolute Neutrophil Count 3.4 X10^3/uL (2.0-7.7); Basophil# 0.04 X10^3/uL; Basophil% 0.7 % (0-1); Eosinophil# 0.07 X10^3/uL; Eosinophils% 1.1 % (0-5); Hematocrit 37.8 % (37-47); Hemoglobin 11.9 g/dL (12.0-15.0); Lymphocyte # 2.27 X10^3/ul (0.83-4.51); Lymphocyte % 37.2 % (19-41); Mean Corp Hgb Conc 31.5 g/dL (32-36); Mean Corpuscular Hgb 29.3 pg (27.0-32.0); Mean Corpuscular Volume 93.1 fL (81-99); Mean Platelet Vol. 9.1 fl (6.2-12.0); Monocyte# 0.33 X10^3/uL; Monocyte% 5.4 % (0-10); NRBC Flagged by Analyzer 0 % (0-5); Neutrophil # 3.38 X10^3/uL (2.7-7.7); Neutrophil % 55.3 % (47-70); Platelet Count 219 K/mm3 (150-450); RBC Distribution Width CV 14.4 % (11.6-14.6); Red Blood Count 4.06 M/mm3 (4.2-5.4); White Blood Count 6.1 K/mm3 (4.4-11.0)
[2022-03-18 13:02] LABS: ALB/GLOB Ratio 0.9 RATIO (0.9-2.4); AST(SGOT) 11 U/L (15-37); Alanine Aminotransfer ALT/SGPT 21 U/L (13-56); Albumin, Serum 3.7 g/dL (3.2-5.0); Alkaline Phosphatase 119 U/L (45-117); Anion Gap 5 (5-15); BUN 10 mg/dL (7-18); BUN/Creat Ratio 11.4 RATIO (10-20); Calcium,Total 9.4 mg/dL (8.5-10.1); Chloride 109 mmol/L (98-107); Cholesterol 187 mg/dL (200); Creatinine, Serum 0.87 mg/dL (0.55-1.02); EST Glomerular Filtration Rate 70 mL/min (>60); Est Glom Filt Rate - Afr Amer 85 mL/min (>60); Glucose 171 mg/dL (74-106); High Density Lipoprotein 69 mg/dL; Magnesium 1.7 mg/dL (1.6-2.6); Potassium 4.1 mmol/L (3.5-5.1); Protein, Total 7.7 g/dL (6.4-8.2); Sodium Level 141 mmol/L (136-145); T4 Free Direct 1.04 ng/dL (0.76-1.46); Thyroid Stim Hormone (TSH) 1.97 uIU/mL (0.358-3.74); Triglycerides 280 mg/dL; Very Low Density Lipoprotein 56 mg/dL (5-40)
[2022-03-24 22:32] LABS: T3 Reverse 21.7 ng/dL (9.2-24.1)
== END | disposition home or self-care (01) ==
PROVIDERS: PCP Internal Medicine; Referring Provider Internal Medicine; Visit Provider Internal Medicine
DX: E11.9 Type 2 diabetes mellitus without complications (principal); R94.6 Abnormal results of thyroid function studies; E83.42 Hypomagnesemia
CPT/HCPCS: 36415; 80053; 80061; 83735; 84439; 84443; 84482; 85025

== ENCOUNTER 2023-03-01 10:43 | Emergency (ER) | payer BC, SELFPAY ==
[2023-03-01 10:44] VITALS: BP 157/92; PULSE 93; RESP 18; TEMP 36.6; O2SAT 100; BMI 35.3
--- NOTE | 2023-03-01 11:12 | EKG12_ITS ---
Test Reason : DIZZINESS Blood Pressure : / mmHG Vent. Rate : 088 BPM Atrial Rate : 000 BPM P-R Int : 000 ms QRS Dur : 088 ms QT Int : 380 ms P-R-T Axes : 000 045 054 degrees QTc Int : 459 ms Atrial fibrillation Abnormal ECG Confirmed by MARIA E CISNEROS, KATHERINE ([id number]), newspaper or periodical editor ANGY TRIMBLE ([id number]) on 03/03/2023 8:39:50 AM Referred By: JEB/ROYCE Confirmed By:KATHERINE SANDERSON MD
--- NOTE | 2023-03-01 11:14 | EX.ED.DYSGE1 ---
HPI <CALIN Villalobos - Last Filed: 03/01/23 13:02> History of Present Illness Chief Complaint: Dizziness Narrative Narrative: Patient today due to intermittent light headedness that she has had since yesterday evening. She reports that the episodes come and go and when they start, she will feel heart palpitations/feeling like her heart is racing, her vision will become slightly blurred and she will develop tunnel vision, and she will feel almost like she could pass out. The symptoms then go away and she will feel normal again. She reports that she feels a slight shortness of breath after this happens but denies feeling short of breath currently. She denies vertiginous dizziness. She reports a history of paroxysmal atrial fibrillation, she is on Xarelto. She reports that she has a tingling sensation to her left and right shoulder that come and go with these episodes. She denies fever, chills, chest pain, abdominal pain, nausea, and vomiting. [facility] <CALIN Villalobos - Last Filed: 03/01/23 13:02> [facility] Medical History Abnormal thyroid function test Afib Asthma Atrial fibrillation Diabetes Diarrhea Health care maintenance History of cardioversion Hydradenitis Hyperlipemia Hypertension Hypomagnesemia Meralgia paresthetica of right side JAVED (obstructive sleep apnea) Osteoarthritis Recurrent boils Seasonal allergies Shortness of breath Tobacco abuse Home Medications blood sugar diagnostic (FreeStyle Test strips) #50 ea 12/23/18 [Rx Last Taken Unknown] lancets 28 gauge (FreeStyle Lancets) #50 ea 12/23/18 [Rx Last Taken Unknown] atorvastatin 20 mg tablet 20 mg PO DAILY #90 tabs 08/31/20 [Rx Last Taken 02/28/23] blood sugar diagnostic (FreeStyle Lite Strips) #100 ea 05/30/21 [Rx Last Taken Unknown] blood-glucose meter (FreeStyle Lite Meter kit) #1 ea 05/30/21 [Rx Last Taken Unknown] cholecalciferol (vitamin D3) 25 mcg (1,000 unit) capsule 2,000 unit PO DAILY 05/30/21 [History Last Taken 02/28/23] lancets 28 gauge (FreeStyle Lancets) #200 ea 05/30/21 [Rx Last Taken Unknown] varenicline 0.5 mg (11)-1 mg (42) tablets in a dose pack See Rx Instructions PO PER PKG DIR #53 tabs 11/26/21 [Rx Last Taken 02/28/23] rivaroxaban 20 mg tablet (Xarelto) 20 mg PO DAILY 12/13/21 [History Last Taken 02/28/23] flecainide 50 mg tablet 150 mg PO BID 03/18/22 [History Last Taken 02/28/23] metoprolol succinate 50 mg tablet,extended release 24 hr 50 mg PO DAILY 03/18/22 [History Last Taken 02/28/23] albuterol sulfate 90 mcg/actuation aerosol inhaler See Rx Instructions .Route .COMPLEX #8.5 ea 05/13/22 [Rx Last Taken Unknown] metformin 500 mg tablet,extended release 24 hr 2,000 mg (4 x 500 mg) PO QPM #360 tabs 06/10/22 [Rx Last Taken 02/28/23] cetirizine 10 mg tablet (24Hour Allergy) 10 mg PO DAILY 03/01/23 [History Last Taken 02/28/23] fluticasone propionate 50 mcg/actuation nasal spray,suspension (Flonase Allergy Relief) 2 spray intranasal DAILY PRN allergy symptoms 03/01/23 [History Last Taken Unknown] latanoprost 0.005 % eye drops 1 drp ophthalmic (eye) QHS 03/01/23 [History Last Taken 02/28/23] sertraline 50 mg tablet 25 mg PO DAILY 03/01/23 [History Last Taken 02/28/23] Allergy/AdvReac Type Severity Reaction Status Date / Time Environmental Allergies: Allergy NEEDS Verified 03/01/23 11:03 Uncoded FOLLOW-UP Family History Father Diabetes Heart disease Hyperlipemia Sister Depression Arthritis Mother Arthritis Hypertension Brother Diabetes Surgical History H/O section History of carpal tunnel release History of cholecystectomy History of hysterectomy Social History Smoking Status: Former smoker alcohol intake: never substance use type: does not use what type of physical activity do you participate in: none ROS <CALIN Villalobos - Last Filed: 03/01/23 13:02> ROS ED Constitutional Constitutional ED: Denies chills or fever(s) Cardiovascular Cardiovascular: Reports palpitations and racing heartbeat; Denies chest pain Respiratory/Chest Respiratory/Chest: Denies cough, dyspnea, tachypnea or wheezing Gastrointestinal Gastrointestinal: Denies abdominal pain, nausea or vomiting Musculoskeletal Musculoskeletal: Denies arthralgias or myalgias Integumentary Denies rash Neurologic Neurologic: Reports paresthesias; Denies dizziness or weakness EXAM <CALIN Villalobos - Last Filed: 03/01/23 13:02> Physical Exam Const Vital Signs: 03/01/23 10:44 03/01/23 11:20 03/01/23 11:54 Temperature 97.8 F Temperature Source Temporal Pulse Rate 93 Pulse Rate [Lying] 81 Pulse Rate [Sitting (for 1 minute prior to obtaining)] 101 H Pulse Rate [Standing (for 1 minute prior to obtaining)] 90 Respiratory Rate 18 Respiratory Effort Normal Non-Labored Respiratory Pattern Normal Blood Pressure 157/92 H Blood Pressure [Lying] 151/92 H Blood Pressure [Sitting (for 1 minute prior to obtaining)] 169/95 H Blood Pressure [Standing (for 1 minute prior to obtaining)] 148/104 H Blood Pressure Mean 113 Blood Pressure Mean [Lying] 111 Blood Pressure Mean [Sitting (for 1 minute prior to obtaining)] 119 Blood Pressure Mean [Standing (for 1 minute prior to obtaining)] 118 Pulse Ox 100 Oxygen Delivery Method Room Air 03/01/23 13:21 Temperature Temperature Source Pulse Rate 82 Pulse Rate [Lying] Pulse Rate [Sitting (for 1 minute prior to obtaining)] Pulse Rate [Standing (for 1 minute prior to obtaining)] Respiratory Rate Respiratory Effort Respiratory Pattern Blood Pressure Blood Pressure [Lying] Blood Pressure [Sitting (for 1 minute prior to obtaining)] Blood Pressure [Standing (for 1 minute prior to obtaining)] Blood Pressure Mean Blood Pressure Mean [Lying] Blood Pressure Mean [Sitting (for 1 minute prior to obtaining)] Blood Pressure Mean [Standing (for 1 minute prior to obtaining)] Pulse Ox Oxygen Delivery Method Positive well nourished, well developed and no apparent distress General Appearance ED: well developed HEENT Reports normocephalic and head/scalp atraumatic Mouth ED: Yes moist mucous membranes normal Eyes PERRL and EOMs intact bilaterally Neck full ROM and supple Chest Wall inspection of chest normal Resp normal respiratory effort and clear to auscultation bilaterally Cardio regular rate Rhythm: abnormal rhythm irregularly irregular GI soft to palpation, non-tender, non-distended and no masses Back/Spine normal ROM and normal to inspection Extremity normal to inspection and full ROM Neuro oriented x3, CN's II-XII intact bilaterally, moves all extremities, no focal motor deficits and no sensory deficits noted Sensorium / Orientation: awake and alert Psych mental status grossly normal and thought process normal Skin no rashes or lesions noted and no wounds <Dr. Charline Rodriguez DO - Last Filed: 03/01/23 21:02> Physical Exam Const Vital Signs: 03/01/23 10:44 03/01/23 11:20 03/01/23 11:54 Temperature 97.8 F Temperature Source Temporal Pulse Rate 93 Pulse Rate [Lying] 81 Pulse Rate [Sitting (for 1 minute prior to obtaining)] 101 H Pulse Rate [Standing (for 1 minute prior to obtaining)] 90 Respiratory Rate 18 Respiratory Effort Normal Non-Labored Respiratory Pattern Normal Blood Pressure 157/92 H Blood Pressure [Lying] 151/92 H Blood Pressure [Sitting (for 1 minute prior to obtaining)] 169/95 H Blood Pressure [Standing (for 1 minute prior to obtaining)] 148/104 H Blood Pressure Mean 113 Blood Pressure Mean [Lying] 111 Blood Pressure Mean [Sitting (for 1 minute prior to obtaining)] 119 Blood Pressure Mean [Standing (for 1 minute prior to obtaining)] 118 Pulse Ox 100 Oxygen Delivery Method Room Air 03/01/23 13:21 Temperature Temperature Source Pulse Rate 82 Pulse Rate [Lying] Pulse Rate [Sitting (for 1 minute prior to obtaining)] Pulse Rate [Standing (for 1 minute prior to obtaining)] Respiratory Rate Respiratory Effort Respiratory Pattern Blood Pressure Blood Pressure [Lying] Blood Pressure [Sitting (for 1 minute prior to obtaining)] Blood Pressure [Standing (for 1 minute prior to obtaining)] Blood Pressure Mean Blood Pressure Mean [Lying] Blood Pressure Mean [Sitting (for 1 minute prior to obtaining)] Blood Pressure Mean [Standing (for 1 minute prior to obtaining)] Pulse Ox Oxygen Delivery Method MDM <CALIN Villalobos - Last Filed: 03/01/23 13:02> [facility] MDM Narrative Medical decision making narrative: Patient presenting due to episodes of lightheadedness and heart palpitations that are intermittent and started yesterday evening. She is well-appearing and in no acute distress. Vitals are unremarkable aside from being slightly hypertensive. She is currently in A-fib but her heart rate is controlled. She is on Xarelto and is compliant with this, low suspicion for PE. She is not experiencing any chest pain. Cardiac labs will be obtained to rule out ACS as well as leukocytosis, anemia, electrolyte abnormality, JAIME. Chest x-ray will be obtained to rule out cardiopulmonary abnormality. CBC, BMP, troponin unremarkable. She is a little bit hyperglycemic. Magnesium slightly low at 1.5. Chest x-ray is unremarkable. Patient's orthostatic vital signs were negative. I do suspect that patient could be going in and out of A-fib which may be making her symptomatic. She is rate controlled and does see cardiology. She also does have a history of anxiety which could be playing a role. I have encouraged her to follow-up with them and she has been given return instructions. She will be discharged. Patient is comfortable with I have personally performed a face to face assessment of the patient and have reviewed the ROMI Note. I performed a substantive portion of the visit including all aspects of the following. My mathis findings include: History is [patient presents to the emergency department complaint of dizziness or lightheaded feeling that initially started yesterday while at the grocery store. She was walking when she just started feeling lightheaded and lasted about a minute and then passed and she really did not think much of it and did not tell her about it. This morning she was eating breakfast when she had sudden onset of lightheadedness again and then had numbness from the top of her head down to her feet. Patient was concerned she might be having the maker . She felt somewhat short of breath but no chest pain. She does have history of A-fib and is on Xarelto. She used to be able to tell when she was going into A-fib but cannot always tell. When she got lightheaded this morning she did feel like her heart was racing.] Exam is [HEENT-PERRLA, EOMI. Cranial nerves II through XII grossly intact. TMs clear. Mucous membranes moist. No adenopathy. Cardiovascular-irregularly irregular, no murmurs auscultated. Lungs-clear to auscultation, chest wall stable without crepitus or subcu emphysema Abdomen-normoactive bowel sounds, soft, nontender, no rebound or rigidity, no peritoneal signs. Extremities-intact ?4, normal range of motion, normal pulses, atraumatic] Medical Decison Making [patient presents with lightheaded feeling and racing heart. History of A-fib. Did feel short of breath. In the differential would be acute coronary syndrome versus A-fib versus anxiety reaction. Clinically she looks well. EKG obtained showed a sinus rhythm with PACs followed by evidence of A-fib.] Other additions or changes: [None] Lab Data Attestation: I reviewed the patient's lab results. Labs: Laboratory Results - last 24 hr 03/01/23 11:00 WBC 7.2 RBC 4.38 Hgb 12.0 Hct 38.1 MCV 87.0 MCH 27.4 MCHC 31.5 L RDW Std Deviation 42.6 RDW Coeff of Jaswant 13.4 Plt Count 251 MPV 9.4 Immature Gran % (Auto) 0.300 Neut % (Auto) 58.3 Lymph % (Auto) 33.8 [place] % (Auto) 4.8 Eos % (Auto) 2.2 Baso % (Auto) 0.6 Absolute Neuts (auto) 4.2 Absolute Lymphs (auto) 2.44 Nucleated RBC % 0 Sodium 138 Potassium 4.1 Chloride 106 Carbon Dioxide 28.0 Anion Gap 4 L BUN 16 Creatinine 0.90 Estim Creat Clear Calc 70.09 Est GFR (MDRD) Af Amer 81 Est GFR (MDRD) Non-Af 67 BUN/Creatinine Ratio 17.7 Glucose 281 H Calcium 9.9 Magnesium 1.5 L Troponin I High Sens 3 Radiography X-Ray: Read by ED Physician and Read by Radiologist Diagnostic Testing: Clinical Impression(s) from Imaging Studies Chest X-Ray 03/01/23 11:40 IMPRESSION: No radiographic evidence of acute cardiopulmonary disease. Electronically Signed: Rafi Zamarripa MD at 12:15 EST , <Dr. Charline Rodriguez, DO - Last Filed: 03/01/23 21:02> MDM MDM Narrative Medical decision making narrative: Patient presenting due to episodes of lightheadedness and heart palpitations that are intermittent and started yesterday evening. She is well-appearing and in no acute distress. Vitals are unremarkable aside from being slightly hypertensive. She is currently in A-fib but her heart rate is controlled. She is on Xarelto and is compliant with this, low suspicion for PE. She is not experiencing any chest pain. Cardiac labs will be obtained to rule out ACS as well as leukocytosis, anemia, electrolyte abnormality, JAIME. Chest x-ray will be obtained to rule out cardiopulmonary abnormality. I have personally performed a face to face assessment of the patient and have reviewed the ROMI Note. I performed a substantive portion of the visit including all aspects of the following. My mathis findings include: History is [patient presents to the emergency department complaint of dizziness or lightheaded feeling that initially started yesterday while at the grocery store. She was walking when she just started feeling lightheaded and lasted about a minute and then passed and she really did not think much of it and did not tell her about it. This morning she was eating breakfast when she had sudden onset of lightheadedness again and then had numbness from the top of her head down to her feet. Patient was concerned she might be having the maker . She felt somewhat short of breath but no chest pain. She does have history of A-fib and is on Xarelto. She used to be able to tell when she was going into A-fib but cannot always tell. When she got lightheaded this morning she did feel like her heart was racing.] Exam is [HEENT-PERRLA, EOMI. Cranial nerves II through XII grossly intact. TMs clear. Mucous membranes moist. No adenopathy. Cardiovascular-irregularly irregular, no murmurs auscultated. Lungs-clear to auscultation, chest wall stable without crepitus or subcu emphysema Abdomen-normoactive bowel sounds, soft, nontender, no rebound or rigidity, no peritoneal signs. Extremities-intact ?4, normal range of motion, normal pulses, atraumatic] Medical Decison Making [patient presents with lightheaded feeling and racing heart. History of A-fib. Did feel short of breath. In the differential would be acute coronary syndrome versus A-fib versus anxiety reaction. Clinically she looks well. EKG obtained showed a sinus rhythm with PACs followed by evidence of A-fib.] Other additions or changes: [None] Lab Data Labs: Laboratory Results - last 24 hr 03/01/23 11:00 WBC 7.2 RBC 4.38 Hgb 12.0 Hct 38.1 MCV 87.0 MCH 27.4 MCHC 31.5 L RDW Std Deviation 42.6 RDW Coeff of Jaswant 13.4 Plt Count 251 MPV 9.4 Immature Gran % (Auto) 0.300 Neut % (Auto) 58.3 Lymph % (Auto) 33.8 [place] % (Auto) 4.8 Eos % (Auto) 2.2 Baso % (Auto) 0.6 Absolute Neuts (auto) 4.2 Absolute Lymphs (auto) 2.44 Nucleated RBC % 0 Sodium 138 Potassium 4.1 Chloride 106 Carbon Dioxide 28.0 Anion Gap 4 L BUN 16 Creatinine 0.90 Estim Creat Clear Calc 70.09 Est GFR (MDRD) Af Amer 81 Est GFR (MDRD) Non-Af 67 BUN/Creatinine Ratio 17.7 Glucose 281 H Calcium 9.9 Magnesium 1.5 L Troponin I High Sens 3 Radiography Diagnostic Testing: Clinical Impression(s) from Imaging Studies Chest X-Ray 03/01/23 11:40 IMPRESSION: No radiographic evidence of acute cardiopulmonary disease. Electronically Signed: Rafi Zamarripa MD at 12:15 EST , EKG Initial EKG: Attestation: I personally reviewed and interpreted this EKG as follows: Comments: Sinus rhythm with PACs with a rate of 88 bpm with strips that were run that showed intermittent A-fib. Discharge Plan Triage Chief Complaint: Dizziness ED Midlevel Provider: Danielle Dumont ED Provider: Charline Rodriguez Dx/Rx/DC Orders Clinical Impression: Light-headedness, Atrial fibrillation Instructions: AFib Dc, ED Dizziness, Uncertain Cause Prescriptions: No Action cholecalciferol (vitamin D3) 25 mcg (1,000 unit) capsule 2,000 unit PO DAILY (DME) lancets [FreeStyle Lancets] 28 gauge misc See Rx Instructions .ROUTE .MEDSUPPLY Qty: 50 11RF Rx Instructions: Check blood glucose daily for type 2 DM (DME) FreeStyle Test Strip See Rx Instructions .ROUTE .MEDSUPPLY Qty: 50 11RF Rx Instructions: check blood glucose daily (DME) lancets [FreeStyle Lancets] 28 gauge misc See Rx Instructions .MEDSUPPLY Qty: 200 3RF Rx Instructions: check blood glucose daily for type 2 DM (DME) blood-glucose meter [FreeStyle Lite Meter] Kit See Rx Instructions .MEDSUPPLY Qty: 1 0RF Rx Instructions: As directed, check blood glucose daily for type 2 DM (DME) FreeStyle Lite Strips Strip See Rx Instructions .MEDSUPPLY Qty: 100 3RF Rx Instructions: check blood glucose daily for type 2 DM Xarelto 20 mg tablet 20 mg PO DAILY flecainide 50 mg tablet 150 mg PO BID metoprolol succinate 50 mg tablet extended release 24 hr 50 mg PO DAILY latanoprost 0.005 % drops 1 drp ophthalmic (eye) QHS Patient Comments: INSTILL ONE DROP IN BOTH EYES AT BEDTIME cetirizine [24Hour Allergy] 10 mg tablet 10 mg PO DAILY fluticasone propionate [Flonase Allergy Relief] 50 mcg/actuation spray,suspension 2 spray intranasal DAILY PRN (Reason: allergy symptoms) Rx Instructions: administer into each nostril sertraline 50 mg tablet 25 mg PO DAILY atorvastatin 20 mg tablet 20 mg PO DAILY Qty: 90 3RF varenicline 0.5 mg (11)- 1 mg (42) tablets,dose pack See Rx Instructions PO PER PKG DIR Qty: 53 0RF Rx Instructions: PO PER PKG DIR albuterol sulfate 90 mcg/actuation HFA aerosol inhaler See Rx Instructions .ROUTE .COMPLEX Qty: 8.5 1RF Dose Instruction: INHALE 1-2 PUFFS BY MOUTH EVERY 6 HOURS NEEDED FOR SHORTNESS OF BREATH OR WHEEZING Rx Instructions: INHALE 1-2 PUFFS BY MOUTH EVERY 6 HOURS NEEDED FOR SHORTNESS OF BREATH OR WHEEZING metformin 500 mg tablet extended release 24 hr 2,000 mg PO QPM Qty: 360 1RF Primary Care Provider: Care Physician,No Primary Referrals: Columba Quiroga MD [[facility] - Active Staff] - Activity Restrictions/Additional Instructions: Follow-up with your PCP. Return for any worsening of your symptoms. Disposition Disposition: Home, Self Care Discharge Date/Time: 03/01/23 13:22
--- OUTSIDE RECORDS SUMMARY | 2023-03-01 11:15 | XMS RPT_ITS | CCD ---
Author Name Unknown Address [address] [place] [address] Organization [facility] Care Team Providers Care Orange Grower Name Role Phone KEARA, FORTINO Unavailable Unavailable KEARA, FORTINO Unavailable Unavailable KEARA, FORTINO Unavailable Unavailable KELLEN MICHAEL Admitting Unavailable KELLEN MICHAEL Attending Unavailable SAMIRA BALDERRAMA Primary Care Unavailable KELLEN MICHAEL Attending Unavailable SAMIRA BALDERRAMA Referring Unavailable SAMIRA BALDERRAMA Primary Care Unavailable PILAR MARTINS MD Primary Care Physician [phone] VACCARELLI PA-C, [facility] Primary Care Physician [phone] VACCARELLI PA-C, [facility] Primary Care Physician [phone] VACCARELLI PA-C, FROILAN Primary Care Unavailab le VACCARELLI PA-C, FROILAN Attending Unavailab CYNDEE Eduardo Attending UnavailPILAR Campos MD Primary Care Unavailab le VACCARELLI PA-C, [facility] Primary Care Unavailab le VACCARELLI PA-C, FROILAN Attending Unavailab le VACCARELLI PA-C, FROILAN Primary Care Unavailab DR KARINE Delong MD Attending Unavailabl CYNDEE Mcconnell Attending UnavailPILAR Campos MD Primary Care Unavailab le VACCARELLI PA-C, [facility] Primary Care Unavailab le VACCARELLI PA-C, FROILAN Attending Unavailab le Medications Current Medications Medication Drug Class(es) Dates Sig (Normalized) Sig (Original) Albuterol (Eqv-ProAir HFA) 90 mcg/inh inhalation aerosol (6 sources) Start: 01-16-2023 Albuterol (Eqv-ProAir HFA) 90 mcg/inh inhalation aerosol 0 Refill(s) Start Date: 03/11/22 Status: Ordered atorvastatin 20 mg oral tablet (9 sources) HMG-CoA Reductase Inhibitor Start: 12-02-2022 take 1 tablet by mouth once daily atorvastatin 20 mg oral tablet 1 tab(s), Oral, qDay, # 90 tab(s), 3 Refill(s), Pharmacy: [id number], 178.7, cm, 10/31/22 10:17:00 EDT, Height, kg, 10/31/22 10:04:00 EDT, Dosing Weight Start Date: 12/02/22 Status: Ordered Problems Active Problems Problem Classification Problem Date Documented Date Episodic/Chronic Cardiac dysrhythmias (18 sources) Paroxysmal atrial fibrillation; Translations: [Ventricular premature beats] 04-20-2019 Chronic Cardiac dysrhythmias (9 sources) Palpitations 04-20-2019 Episodic Diabetes mellitus with complications (6 sources) Mixed hyperlipidemia due to type 2 diabetes mellitus; Translations: [Type II diabetes mellitus uncontrolled] 08-02-2022 Chronic Diabetes mellitus without complication (3 sources) Type 2 diabetes mellitus without complication; Translations: [Type 2 diabetes mellitus without complications] Onset: 3 Chronic Disorders of lipid metabolism (3 sources) Primary hypertriglyceridemia 08-02-2022 Chronic Nonspecific chest pain (3 sources) Chest pain 04-27-2019 Episodic Other ear and sense organ disorders (9 sources) Tinnitus 04-20-2019 Episodic Other lower respiratory disease (9 sources) Dyspnea 04-20-2019 Episodic Other nutritional; endocrine; and metabolic disorders (3 sources) Body mass index 30+ - obesity 08-02-2022 Chronic Other nutritional; endocrine; and metabolic disorders (3 sources) Severe obesity 08-02-2022 Chronic Other nutritional; endocrine; and metabolic disorders (2 sources) Body mass index (BMI) 35.0-35.9, adult; Translations: [Body mass index [BMI] 35.0-35.9, adult] Onset: 3 Chronic Other screening for suspected conditions (not mental disorders or infectious disease) (1 source) Procedure carried out on subject; Translations: [Encounter for screening for lipoid disorders] Episodic Residual codes; unclassified (9 sources) Obstructive sleep apnea syndrome 04-20-2019 Chronic Skin and subcutaneous tissue infections (1 source) Abscess of skin and/or subcutaneous tissue; Translations: [Cutaneous abscess, unspecified] Onset: 3 Episodic Substance-related disorders (5 sources) Nicotine dependence; Translations: [Nicotine dependence, unspecified, uncomplicated] Onset: 3 08-02-2022 Chronic Unclassified (6 sources) Patient encounter status 08-02-2022 Past or Other Problems Problem Classification Problem Date Documented Da te Episodic/Chronic Administrative/social admission (2 sources) Tobacco abuse counseling; Translations: [Tobacco abuse counseling] Onset: 10-31-2022 Episodic Residual codes; unclassified (2 sources) Tobacco use; Translations: [Tobacco use] Onset: 10-31-2022 Episodic Results Test Name Value Interpretation Reference Range Facil ity Vital Signs Date Time Vital Sign Value Performing Clinician Faci [facility] 02-16-2023 16:08-0500 Diastolic Blood Pressure Non-Invasive 58 mm[Hg] DR KATHLEEN MCKEON DO [facility] 02-16-2023 16:08-0500 Heart rate 65 /min DR KATHLEEN MCKEON DO [facility] 02-16-2023 16:08-0500 Mean blood pressure 80 mm[Hg] DR KATHLEEN MCKEON DO [facility] 02-16-2023 16:08-0500 Respiratory rate 16 /min DR KATHLEEN MCKEON DO [facility] 02-16-2023 16:08-0500 Systolic Blood Pressure Non-Invasive 130 mm[Hg] DR KATHLEEN MCKEON DO [facility] 02-16-2023 14:10-[address] KATHLEEN MCKEON DO [facility] 02-16-2023 14:10-0500 Body temperature 98.24 [degF] DR KATHLEEN MCKEON DO [facility] 12-24-2023 14:10-0500 Diastolic Blood Pressure Non-Invasive 69 mm[Hg] DR KATHLEEN MCKEON DO [facility] 02-16-2023 14:10-0500 Heart rate 62 /min DR KATHLEEN MCKEON DO [facility] 02-16-2023 14:10-0500 Respiratory rate 16 /min DR KATHLEEN MCKEON DO [facility] 02-16-2023 14:10-0500 Systolic Blood Pressure Non-Invasive 128 mm[Hg] DR KATHLEEN MCKEON DO [facility] 01-24-2022 10:08-0500 Body temperature 97.88 [degF] DR ANTHONY RIDDLE MD [address] 01-24-2022 10:08-0500 Diastolic Blood Pressure Non-Invasive [address] ANTHONY RIDDLE MD [address] 01-24-2022 10:08-0500 Heart rate 70 /min DR ANTHONY RIDDLE MD [address] [place] [address] 01-24-2022 10:08-0500 Respiratory rate 18 /min DR ANTHONY RIDDLE MD [address] 01-24-2022 10:08-0500 Systolic Blood Pressure Non-Invasive [address] ANTHONY RIDDLE MD [address] 01-24-2022 09:56-0500 Body temperature 98.24 [degF] DR ANTHONY RIDDLE MD [address] 01-24-2022 09:56-0500 Diastolic Blood Pressure Non-Invasive [address] ANTHONY RIDDLE MD [address] 01-24-2022 09:56-0500 Heart rate 74 /min DR ANTHONY RIDDLE MD [address] 01-24-2022 09:56-0500 Reason For Taking VItal Signs DR ANTHONY RIDDLE MD [address] [place] [address] 01-24-2022 09:56-0500 Respiratory rate 16 /min DR ANTHONY RIDDLE MD [address] [place] [address] 01-24-2022 09:56-0500 Systolic Blood Pressure Non-Invasive [address] ANTHONY RIDDLE MD [address] [place] [address] 01-24-2022 09:45-0500 Diastolic Blood Pressure Non-Invasive [address] ANTHONY RIDDLE MD [address] [place] [address] 01-24-2022 09:45-0500 Heart rate 75 /min DR ANTHONY RIDDLE MD [address] [place] [address] 01-24-2022 09:45-0500 Respiratory rate 18 /min DR ANTHONY RIDDLE MD [address] [place] [address] 01-24-2022 09:45-0500 Systolic Blood Pressure Non-Invasive [address] ANTHONY RIDDLE MD [address] [place] [address] 01-24-2022 09:40-0500 Body temperature 96.98 [degF] DR ANTHONY RIDDLE MD [address] [place] [address] 01-24-2022 09:40-0500 Heart rate 68 /min DR ANTHONY RIDDLE MD [address] [place] [address] 01-24-2022 09:40-0500 Heart rate 70 /min DR ANTHONY RIDDLE MD [address] [place] [address] 01-24-2022 07:05-0500 Blood Pressure Cuff Size DR ANTHONY RIDDLE MD [address] [place] [address] 01-24-2022 07:05-[address] ANTHONY RIDDLE MD [address] [place] [address] 01-24-2022 07:05-[address] ANHTONY RIDDLE MD [address] [place] [address] 01-24-2022 07:05-0500 Body height 177.[address] ANTHONY RIDDLE MD [facility] 01-24-2022 07:05-0500 Body temperature 97.16 [degF] DR ANTHONY RIDDLE MD [facility] 01-24-2022 07:05-0500 Body weight 105.[address] ANTHONY RIDDLE MD [facility] 01-24-2022 07:05-0500 Body weight 33.28 kg/m2 DR ANTHONY RIDDLE MD [facility] 01-24-2022 07:05-0500 Heart rate 65 /min DR ANTHONY RIDDLE MD [facility] Encounters Encounter Date Encounter Type Care Provider Facility Start: 02-16-2023 End: 02-16-2023 Emergency department patient visit FROILAN VACCARELLI PA-C Facility:[facility] Start: 02-16-2023 End: 02-16-2023 Emergency department patient visit DR KATHLEEN MCKEON DO [facility] Start: 10-31-2022 End: 11-05-2022 ambulatory FROILAN VACCARELLI PA-C Facility:[facility] Start: 10-31-2022 End: 11-04-2022 Outreach Lab FROILAN VACCARELLI PA-C [facility] Start: 10-21-2022 End: 10-22-2022 ambulatory FROILAN VACCARELLI PA-C Facility:[facility] Start: 10-21-2022 End: 10-21-2022 Patient encounter procedure FROILAN VACCARELLI PA-C [facility] Start: 06-18-2022 End: 06-19-2022 ambulatory FROILAN VACCARELLI PA-C Facility:[facility] Start: 06-18-2022 End: 06-18-2022 Patient encounter procedure FROILAN VACCARELLI PA-C [facility] Start: 03-26-2022 End: 03-27-2022 ambulatory CYNDEE GOLDBERG CUTTING MACHINE OPERATOR-CRIMINALIST TECHNICIAN Facility:[facility] Start: 03-26-2022 End: 03-26-2022 Patient encounter procedure CYNDEE GOLDBERG CUTTING MACHINE OPERATOR-CRIMINALIST TECHNICIAN [facility] Start: 03-11-2022 End: 03-12-2022 ambulatory CYNDEE GOLDBERG CUTTING MACHINE OPERATOR-CRIMINALIST TECHNICIAN Facility:[facility] Start: 03-11-2022 End: 03-11-2022 Patient encounter procedure CYNDEE GOLDBERG CUTTING MACHINE OPERATOR-CRIMINALIST TECHNICIAN [facility] Start: 01-24-2022 End: 01-24-[address] ANTHONY RIDDLE MD [facility] Start: 12-25-2021 End: 12-25-2021 Patient encounter procedure CYNDEE GOLDBERG CUTTING MACHINE OPERATOR-CRIMINALIST TECHNICIAN [facility] Start: 12-10-2021 End: 12-10-2021 Patient encounter procedure CYNDEE GOLDBERG CUTTING MACHINE OPERATOR-CRIMINALIST TECHNICIAN [facility] Start: 11-29-2019 Patient encounter procedure KELLEN MICHAEL Facility:[facility] Start: 12-10-2018 Patient encounter procedure KELLEN MICHAEL Facility:[facility] Start: 01-06-2017 End: 01-06-2017 [facility] Procedures Date Procedure Procedure Detail Performing Clinician Start: 02-02-2018 Electrocardiographic monitoring CYNDEE GOLDBERG CUTTING MACHINE OPERATOR-CRIMINALIST TECHNICIAN Immunizations Immunization Date Immunization Notes Care Provider Fa cili 02-12-2021 SARS-CoV-2 (COVID-19 ) mRNA-[address] ANTHONY RIDDLE MD [facility] 08-02-[address] ANTHONY RIDDLE MD [facility] 06-08-2020 SARS-CoV-2 (COVID-19 ) mRNA-[address] ANTHONY RIDDLE MD [facility] Payers Date Payer Category Payer Unknown [id number] 1960 Unknown [id number] 2.16. [id number] 1960 Unknown [id number] 2.16. [id number] 1960 Unknown [id number] 2.16.8 [id number] 1960 Unknown [id number] 2.16.8 [id number] 1960 Unknown [id number] 2.16.8 [id number] 1960 Unknown [id number] 2.16.8 [id number] 1960 Unknown [id number] 2.16.8 [id number] 1960 Unknown [id number] 2.16.8 [id number] Unknown [id number] Social History Date Type Detail Facility Start: 04-27-2019 Tobacco smoking status Heavy t obacco smoker (finding) [facility] Sex Assigned At Female [facility] Start: 06-17-2022 Tobacco smoking status Ex-smoker (fi nding) [facility] Functional Status Date Assessment Result Facility 02-16-2023 Functional Status Independent [facility] 02-16-2023 Functional Status ID band on [facility] 01-24-2022 Functional Status Room located n ear nursing station, Room check performed [facility] 01-24-2022 Functional Status [facility] Mental Status Date Assessment Result Facility 02-16-2023 Mental Status Orientation Oriented x 4 [facility] 02-16-2023 [facility] 01-24-2022 Mental Status Oriented x 4 [facility] Clinical Notes 01-24-2022 to 02-16-2023 [facility]iology[facility]atory[facility]iology Note Date & Type Note Facility 02-16-2023 Hospital Discharg e instructions Patient Education 02/16/2023 17:58:56 Abscess, Incision And Drainage Abscess (Incision & Drainage) An abscess is sometimes called a boil. It happens when bacteria get trapped under the skin and start to grow. Pus forms inside the abscess as the body responds to the bacteria. An abscess can happen with an insect bite, ingrown hair, blocked oil gland, pimple, cyst, or puncture wound. Your healthcare provider has drained the pus from your abscess. If the abscess pocket was large, your healthcare provider may have put in gauze packing. Your provider will need to remove it on your next visit. He or she may also replace it at that time. You may not need antibiotics to treat a simple abscess, unless the infection is spreading into the skin around the wound (cellulitis). The wound will take about 1 to 2 weeks to heal, depending on the size of the abscess. Healthy tissue will grow from the bottom and sides of the opening until it seals over. Home care These tips can help your wound heal: The wound may drain for the first 2 days. Cover the wound with a clean dry dressing. Change the dressing if it becomes soaked with blood or pus. If a gauze packing was placed inside the abscess pocket, you may be told to remove it yourself. You may do this in the shower. Once the packing is removed, you should wash the area in the shower, or clean the area as directed by your provider. Continue to do this until the skin opening has closed. Make sure you wash your hands after changing the packing or cleaning the wound. If you were prescribed antibiotics, take them as directed until they are all gone. You may use acetaminophen or ibuprofen to control pain, unless another pain medicine was prescribed. If you have liver disease or ever had a stomach ulcer, talk with your doctor before using these medicines. Follow-up care Follow up with your healthcare provider, or as advised. If a gauze packing was put in your wound, it should be removed in 1 to 2 days. Check your wound every day for any signs that the infection is getting worse. The signs are listed below. When to seek medical advice Call your healthcare provider right away if any of these occur: Increasing redness or swelling Red streaks in the skin leading away from the wound Increasing local pain or swelling Continued pus draining from the wound 2 days after treatment Fever of 100.4 F (38 C) or higher, or as directed by your healthcare provider Boil returns when you are at home [id number] [employer]. [address] [place] [address]. All rights reserved. This information is not intended as a substitute for professional medical care. Always follow your healthcare professional's instructions. Follow Up Care 02/16/2023 13:58:06 With:FROILAN BLAND PA-C Address: [address] [place] [address] [phone] When:2-4 days [facility] 02-16-2023 Emergency department Discharge summary Discharge Instructions Thank you for allowing [facility] to assist you with your healthcare needs. The following is important discharge information regarding your hospital visit. Diagnosis from Today's Visit Abscess boil What to Do Next Instructions from Your Care Team Take antibiotics as prescribed. Follow-up with your surgeon, keep the area clean, you may do sitz bath several times a day. Return if any worsening or concerning symptoms. No qualifying data available. Post Acute Orders No qualifying data available. You Need to Schedule the Following Appointments Follow Up with FROILAN BLAND PA-C When Within 2-4 days Where: [address] [place] [address] [phone] Allergies NKA Medications Please ask your primary doctor or pharmacist before taking any other medication not listed, including over the counter drugs, herbal medications, vitamins and or supplements as they may interact with your home medications. What How Much When Why Instructions Last Dose New doxycycline (doxycycline hyclate 100 mg oral tablet) 1 tab(s) by mouth Two (2) times a day Duration: 7 Days Printed Prescription New doxycycline (doxycycline hyclate 100 mg oral tablet) 1 tab(s) by mouth Two (2) times a day Duration: 1 Days Printed Prescription Unchanged albuterol (Albuterol (Eqv-ProAir HFA) 90 mcg/ inh inhalation aerosol) Unchanged atorvastatin (atorvastatin 20 mg oral tablet) 1 tab(s) by mouth Once a day Unchanged cetirizine (Zyrtec 10 mg oral tablet) 1 tab(s) by mouth Once a day Unchanged cholecalciferol (Vitamin D3) 2000 IU by mouth Once a day Unchanged flecainide (flecainide 150 mg oral tablet) TAKE 1 TABLET BY MOUTH EVERY 12 HOURS Unchanged latanoprost ophthalmic (latanoprost 0.005% ophthalmic emulsion) 1 Drops Both eyes Daily at bedtime Unchanged metFORMIN (metFORMIN 500 mg oral tablet (IR)) 4 tab(s) by mouth Daily at bedtime Unchanged metoprolol (Metoprolol Succinate ER 50 mg oral TABLET extended release) TAKE 1 TABLET BY MOUTH EVERY DAY Unchanged rivaroxaban (Xarelto 20 mg oral tablet) 1 tab(s) by mouth Once a day (in the evening) Unchanged semaglutide (Ozempic (0.25 mg or 0.5 mg dose) 2 mg/ 1.5 mL subcutaneous solution) 1 Milligram Subcutaneous Every Friday Unchanged sertraline (Zoloft 25 mg oral tablet) 1 tab(s) by mouth Every day Emotional lability Unchanged varenicline (Chantix Starter Pack 0.5 mg-1 mg oral tablet) 1 tab(s) by mouth Two (2) times a day Encounter for smoking cessation counseling Tobacco use Follow package directions Please take this list to your next doctor s visit. Bring all medications you take, including over the counter medications, herbals and other supplements with you to your doctor s visit. Patients and families are reminded to discard old lists and to update any records with all medication providers or retail pharmacies. Medication Leaflets doxycycline (oral/injection) (DOX i DELFINO klemariaa) Acticlate, Adoxa, Alodox, Avidoxy, Doryx, Doryx MPC, Lymepak, Mondoxyne NL, Monodox, Morgidox, Morgidox [id number], Morgidox [id number], [place]bo, Oracea, Targadox, Vibramycin, Vibramycin Monohydrate What is the most important information I should know about doxycycline? You should not take this medicine if you are allergic to any tetracycline antibiotic. Children younger than 8 years old should use doxycycline only in cases of severe or life-threatening conditions. This medicine can cause permanent yellowing or graying of the teeth in children Using doxycycline during could harm the unborn baby or cause permanent tooth discoloration later in the baby's life. What is doxycycline? Doxycycline is a tetracycline antibiotic that Doxycycline is used to treat many different bacterial infections, such as acne, urinary tract infections, intestinal infections, eye infections, gonorrhea, chlamydia, periodontitis (gum disease), and others. Doxycycline is also used to treat blemishes, bumps, and acne-like lesions caused by rosacea. Doxycycline will not treat facial redness caused by rosacea. Some forms of doxycycline are used to prevent malaria, to treat anthrax, or to treat infections caused by mites, ticks, or lice. Doxycycline may also be used for purposes not listed in this medication guide. What should I discuss with my healthcare provider before taking doxycycline? You should not take this medicine if you are allergic to doxycycline or other tetracycline antibiotics such as demeclocycline, minocycline, tetracycline, or tigecycline. Tell your doctor if you have ever had: liver disease; kidney disease; asthma or sulfite allergy; increased pressure inside your skull; or if you also take isotretinoin, seizure medicine, or a blood thinner such as warfarin (Coumadin). If you are using doxycycline to treat gonorrhea, your doctor may test you to make sure you do not also have syphilis, another sexually transmitted disease. Taking this medicine during may affect tooth and bone development in the unborn baby. Taking doxycycline during the last half of can cause permanent tooth discoloration later in the baby's life. Tell your doctor if you are or if you become . Doxycycline can make control pills less effective. Ask your doctor about using a non-hormonal control (condom, diaphragm with spermicide) to prevent . Doxycycline can pass into breast milk and may affect bone and tooth development in a nursing . Do not breastfeed while you are taking doxycycline. Doxycycline can cause permanent yellowing or graying of the teeth in children younger than 8 years old. Children should use doxycycline only in cases of severe or life-threatening conditions such as anthrax or [place] spotted fever. The benefit of treating a serious condition may outweigh any risks to the child's tooth development. How should I take doxycycline? Follow all directions on your prescription label and read all medication guides or instruction sheets. Use the medicine exactly as directed. Take doxycycline with a full glass of water. Drink plenty of liquids while you are taking doxycycline. Read and carefully follow any Instructions for Use provided with your medicine. Ask your doctor or pharmacist if you do not understand these instructions. Most brands of doxycyline may be taken with food or milk if the medicine upsets your stomach. Different brands of doxycycline may have different instructions about taking them with or without food. Take Oracea on an empty stomach, at least 1 hour before or 2 hours after a meal. You may need to split a doxycycline tablet to get the correct dose. Follow your doctor's instructions. Swallow a delayed-release capsule or tablet whole. Do not crush, chew, break, or open it. Measure liquid medicine with the dosing syringe provided, or with a special dose-measuring spoon or medicine cup. If you do not have a dose-measuring device, ask your pharmacist for one. If you take doxycycline to prevent malaria: Start taking the medicine 1 or 2 days before entering an area where malaria is common. Continue taking the medicine every day during your stay and for at least 4 weeks after you leave the area. Doxycycline is usually given by injection only if you are unable to take the medicine by mouth. A healthcare provider will give you this injection as an infusion into a vein. Use this medicine for the full prescribed length of time, even if your symptoms quickly improve. Skipping doses can increase your risk of infection that is resistant to medication. Doxycycline will not treat a viral infection such as the flu or a common cold. Store at room temperature away from moisture, heat, and light. Throw away any unused medicine after the expiration date on the label has passed. Using doxycycline can cause damage to your kidneys. What happens if I miss a dose? Take the medicine as soon as you can, but skip the missed dose if it is almost time for your next dose. Do not take two doses at one time. What happens if I overdose? Seek emergency medical attention or call the Poison Help line at . What should I avoid while taking doxycycline? Do not take iron supplements, multivitamins, calcium supplements, antacids, or laxatives within 2 hours before or after taking doxycycline. Avoid taking any other antibiotics with doxycycline unless your doctor has told you to. Doxycycline could make you sunburn more easily. Avoid sunlight or tanning beds. Wear protective clothing and use sunscreen (SPF 30 or higher) when you are outdoors. Antibiotic medicines can cause diarrhea, which may be a sign of a new infection. If you have diarrhea that is watery or bloody, call your doctor. Do not use anti-diarrhea medicine unless your doctor tells you to. What are the possible side effects of doxycycline? Get emergency medical help if you have signs of an allergic reaction (hives, difficult breathing, swelling in your face or throat) or a severe skin reaction (fever, sore throat, burning in your eyes, skin pain, red or purple skin rash that spreads and causes blistering and peeling). Seek medical treatment if you have a serious drug reaction that can affect many parts of your body. Symptoms may include: skin rash, fever, swollen glands, flu-like symptoms, muscle aches, severe weakness, unusual bruising, or yellowing of your skin or eyes. This reaction may occur several weeks after you began using doxycycline. Call your doctor at once if you have: severe stomach pain, diarrhea that is watery or bloody; throat irritation, trouble swallowing; chest pain, irregular heart rhythm, feeling short of breath; little or no urination; low white blood cell counts--fever, chills, swollen glands, body aches, weakness, pale skin, easy bruising or bleeding; increased pressure inside the skull--severe headaches, ringing in your ears, dizziness, nausea, vision problems, pain behind your eyes; or signs of liver or pancreas problems--loss of appetite, upper stomach pain (that may spread to your back), tiredness, nausea or vomiting, fast heart rate, dark urine, jaundice (yellowing of the skin or eyes). Common side effects may include: nausea, vomiting, upset stomach, loss of appetite; mild diarrhea; skin rash or itching; darkened skin color; or vaginal itching or discharge. This is not a complete list of side effects and others may occur. Call your doctor for medical advice about side effects. You may report side effects to FDA at 4-738-IWY-9070. What other drugs will affect doxycycline? Sometimes it is not safe to use certain medications at the same time. Some drugs can affect your blood levels of other drugs you take, which may increase side effects or make the medications less effective. Other drugs may affect doxycycline, including prescription and znpr-dnp-bmhepjk medicines, vitamins, and herbal products. Tell your doctor about all your current medicines and any medicine you start or stop using. Where can I get more information? Your pharmacist can provide more information about doxycycline. Remember, keep this and all other medicines out of the reach of children, never share your medicines with others, and use this medication only for the indication prescribed. Every effort has been made to ensure that the information provided by [employer]. ('[employer]') is accurate, up-to-date, and complete, but no guarantee is made to that effect. Drug information contained herein may be time sensitive. [employer] information has been compiled for use by healthcare practitioners and consumers in the [place] and therefore [employer] does not warrant that uses outside of the [place] are appropriate, unless specifically indicated otherwise. [employer]'s drug information does not endorse drugs, diagnose patients or recommend therapy. [employer] drug information is an informational resource designed to assist licensed healthcare practitioners in caring for their patients and/or to serve consumers viewing this service as a supplement to, and not a substitute for, the expertise, skill, knowledge and judgment of healthcare practitioners. The absence of a warning for a given drug or drug combination in no way should be construed to indicate that the drug or drug combination is safe, effective or appropriate for any given patient. [employer] does not assume any responsibility for any aspect of healthcare administered with the aid of information [employer] provides. The information contained herein is not intended to cover all possible uses, directions, precautions, warnings, drug interactions, allergic reactions, or adverse effects. If you have questions about the drugs you are taking, check with your doctor, nurse or pharmacist. Copyright 3261-0520 [employer]. Version: 25.01. Revision Date: 10/30/2022. Education Materials Abscess (Incision & Drainage) An abscess is sometimes called a boil. It happens when bacteria get trapped under the skin and start to grow. Pus forms inside the abscess as the body responds to the bacteria. An abscess can happen with an insect bite, ingrown hair, blocked oil gland, pimple, cyst, or puncture wound. Your healthcare provider has drained the pus from your abscess. If the abscess pocket was large, your healthcare provider may have put in gauze packing. Your provider will need to remove it on your next visit. He or she may also replace it at that time. You may not need antibiotics to treat a simple abscess, unless the infection is spreading into the skin around the wound (cellulitis). The wound will take about 1 to 2 weeks to heal, depending on the size of the abscess. Healthy tissue will grow from the bottom and sides of the opening until it seals over. Home care These tips can help your wound heal: The wound may drain for the first 2 days. Cover the wound with a clean dry dressing. Change the dressing if it becomes soaked with blood or pus. If a gauze packing was placed inside the abscess pocket, you may be told to remove it yourself. You may do this in the shower. Once the packing is removed, you should wash the area in the shower, or clean the area as directed by your provider. Continue to do this until the skin opening has closed. Make sure you wash your hands after changing the packing or cleaning the wound. If you were prescribed antibiotics, take them as directed until they are all gone. You may use acetaminophen or ibuprofen to control pain, unless another pain medicine was prescribed. If you have liver disease or ever had a stomach ulcer, talk with your doctor before using these medicines. Follow-up care Follow up with your healthcare provider, or as advised. If a gauze packing was put in your wound, it should be removed in 1 to 2 days. Check your wound every day for any signs that the infection is getting worse. The signs are listed below. When to seek medical advice Call your healthcare provider right away if any of these occur: Increasing redness or swelling Red streaks in the skin leading away from the wound Increasing local pain or swelling Continued pus draining from the wound 2 days after treatment Fever of 100.4 F (38 C) or higher, or as directed by your healthcare provider Boil returns when you are at home 3194-6758 [employer]. [address] [place] [address] 52008. All rights reserved. This information is not intended as a substitute for professional medical care. Always follow your healthcare professional's instructions. Additional Information VACCINATE! IT SAVES LIVES! Members of the community who have not yet received the COVID-19 vaccine and would like to receive it can visit one of [facility] vaccine clinics. There are many vaccine clinic locations within the [facility]. For locations and available times, please visit [email or web address] [email or web address] It is important to note that some COVID mobile vaccine clinics are held outdoors and may be canceled in rainy or stormy conditions. To learn more about pediatric vaccinations (ages 5-11), we invite you to visit the [facility] webpage. https://www.MyLifePlaces.org/p [email or web address]-Rwcbq-Wjowacxokmk-Freq bpgctu-Fyhgn-Gnqcdojps.html To learn more about the COVID-19 vaccine, we invite you to visit the CDC website for a list of frequently asked questions. https://www.cdc.gov/coronavirus/ 2019-ncov/vaccines/faq.html [facility] Patient Portal Access Instructions: Stay connected with your healthcare team and access your personal medical information anytime with the [facility] Patient Portal. If you would like a full copy of your medical records please contact the [facility] Medical Records Department Friday through Friday between 8a.m. and 4:30p.m. Please follow the directions below to access the portal: 1.Access the email account you provided upon registration to the [facility].2.Look for an invitation email from [facility].3.Open the email and access the invitation link: Accept Invitation to [facility].Fill in the required cool to create your account. Sign into www.[employer] with your username and password that you created in the above steps to stay up to date. You can then view a summary of results, a summary of your visits, and the ability to download your summaries to your computer or send the information securely to a physician. Remember that your healthcare information is confidential, so carefully consider who you will allow to register on the [facility] Patient Portal for access to your information. You can also access the [facility] Patient Portal on the [employer]. Simply click on Health Records under Health Data and then click on the [employer] logo. HOW TO SAFELY DISPOSE OF PRESCRIPTION MEDICATIONS Please use one of the following methods to safely dispose of your unused medications. 1.Use a drug disposal kit: the drug disposal pouch allows you to safely discard your old and unused drugs. Ask your nurse to give you one when you are discharged.2.Visit a local take-back location: Many local pharmacies and police departments have programs that collect old and unwanted prescription drugs. Call your local pharmacy or go to http://[employer]IPT[employer]ON[employer]6G5Bn7c to find one close to you.3.Make use of household items: Use cat litter or old coffee grounds to dispose medications if other options are not available. Mix your drugs with these household products, seal them in an airtight container and throw it into the garbage. Call [facility]: [phone] to be sure your drugs can be disposed of in this way. Some medicines may require a different approach.4.Never flush your medications down the toilet. IF YOU HAVE BEEN PRESCRIBED AN OPIOIDS FOR PAIN If you have been prescribed an opioid (such as hydrocodone, oxycodone or morphine), it is critical to understand the possible side effects and risks of opioid pain medications. Even when taken as directed, opioids can have several side effects including: Tolerance, meaning you might need to take more of a medication for the same pain relief. Nausea, vomiting and/or constipation. Sleepiness, dizziness, dry mouth, confusion, depression or itching. Physical dependence, meaning you have withdrawal symptoms when a medication is stopped ? this can develop within a few days. KNOW YOUR RESPONSIBILITIES It is important to know exactly how much and how often to take the opioid pain medications you are prescribed. Never take opioids in higher amounts or more often than prescribed. Do not combine opioids with alcohol or other drugs that cause drowsiness, such as benzodiazepines, also known as benzos, including diazepam and alprazolam, muscle relaxants or sleep aids. Never sell or share prescription opioids. This is illegal. Store opioids in a secure place and out of reach of others (including children, family, friends and visitors). The last page(s) of this document has been signed and retained as a CHART COPY Signatures Patient Education Materials Abscess, Incision And Drainage Medication Leaflets doxycycline (oral/injection) My discharge plan and instructions have been reviewed and explained to me and I,DILIA ZAMBRANO, ELLE Prajapati understand my current condition and have read and understand these discharge instructions. I have received a written copy of the plan/instructions. If I have questions, I am aware that I should contact my doctor. Patient/Olive Pitter Signature: Date/Time: Relationship to Patient: Witness Name/Signature: Date/Time: [facility] 02-16-2023 Note ORIGINAL EXAMINATION: CT OF THE PELVIS WITH CONTRAST 02/16/2023 4:29 pm TECHNIQUE: CT of the pelvis was performed with the administration of intravenous contrast. Multiplanar reformatted images are provided for review. Automated exposure control, iterative reconstruction, and/or weight based adjustment of the mA/kV was utilized to reduce the radiation dose to as low as reasonably achievable. COMPARISON: None. HISTORY ORDERING SYSTEM PROVIDED HISTORY: Reason for Exam: R perineal abscess FINDINGS: The visualized arteries are nonaneurysmal with mild atherosclerotic disease. No adenopathy identified. There is a prominent right external iliac chain lymph node with normal fatty hilum, most likely reactive. The bladder is unremarkable. The uterus and adnexa are unremarkable. No visualized pneumoperitoneum or free fluid. The visualized large and small bowel are normal in caliber. The appendix is unremarkable. No acute osseous abnormality. Degenerative changes of the spine. Within the right gluteal fold in the perineal region there is mild soft tissue edema with a few locules of free air. There is no visualized walled-off fluid collection or abscess identified. However the area in question is incompletely visualized. IMPRESSION: Incomplete visualization of the right perineal/gluteal fold area of soft tissue swelling with a few locules of air. Correlate with history of recent lancing/drainage. No walled-off fluid collection/abscess identified. I have reviewed this report and agree with the resident findings and interpretation. Interpreted by: Camden Rachel MD Preliminary Report By: Mario Alberto Hwang Electronically signed By Camden Rachel MD Dictated Date: 02/16/2023 4:31:40 PM Prelim Date: 02/16/2023 4:38:04 PM Sign Date: 02/16/2023 4:43:13 PM Ordering Provider: KARINE [facility] 01-24-2022 Hospital Discharg e instructions Patient Education 01/24/2022 09:51:05 Moderate Conscious Sedation, Adult, Care After Moderate Conscious Sedation, Adult, Care After These instructions provide you with information about caring for yourself after your procedure. Your health care provider may also give you more specific instructions. Your treatment has been planned according to current medical practices, but problems sometimes occur. Call your health care provider if you have any problems or questions after your procedure. What can I expect after the procedure? After your procedure, it is common: To feel sleepy for several hours. To feel clumsy and have poor balance for several hours. To have poor judgment for several hours. To vomit if you eat too soon. Follow these instructions at home: For at least 24 hours after the procedure: Do not: ?Participate in activities where you could fall or become injured. ?Drive. ?Use heavy machinery. ?Drink alcohol. ?Take sleeping pills or medicines that cause drowsiness. ?Make important decisions or sign legal documents. ?Take care of children on your own. Rest. Eating and drinking Follow the diet recommended by your health care provider. If you vomit: ?Drink water, juice, or soup when you can drink without vomiting. ?Make sure you have little or no nausea before eating solid foods. General instructions Have a responsible adult stay with you until you are awake and alert. Take tdvi-czw-itzrhta and prescription medicines only as told by your health care provider. If you smoke, do not smoke without supervision. Keep all follow-up visits as told by your health care provider. This is important. Contact a health care provider if: You keep feeling nauseous or you keep vomiting. You feel light-headed. You develop a rash. You have a fever. Get help right away if: You have trouble breathing. This information is not intended to replace advice given to you by your health care provider. Make sure you discuss any questions you have with your health care provider. Document Released: 12/01/2013 Document Revised: 01/23/2018 Document Reviewed: 06/01/2016 [employer] Patient Education 2020 [place] Everywhere. 01/24/2022 09:51:04 3- Cardioversion (11/2017) (CUSTOM) CARDIOVERSION Discharge instructions ACTIVITY/SAFETY Please refrain from the following activities for 24 hours: Do not drive a car or operate heavy equipment. Do not consume alcohol for 24 hours. Do not return to work for 24 hours. Postpone signing any important papers or making important decisions. COMFORT Call your primary doctor if you have any redness, tenderness, warmth, discharge or swelling at your IV site. Your chest or back may get red and/or develop a burning sensation. Apply fragrance-free Aloe Vera lotion. Take Tylenol as needed for pain. DIET When you return home, resume your regular diet unless otherwise directed. Some of the sedatives, anesthetic medications you received today may make you nauseated. If vomiting persists, call your doctor. Restart your usual medications unless otherwise instructed by your doctor. If you have any questions, please call your doctor at the number listed on your follow up instructions. Document Released: 02/10/2006 Document Revised: 01/27/2013 Document Reviewed: 02/11/2014 ExitCare Patient Information 2015 [employer]. This information is not intended to replace advice given to you by your health care provider. Make sure you discuss any questions you have with your health care provider. Follow Up Care 01/10/2022 13:41:07 With:Follow up with primary care provider Address: When: Unknown [facility] 01-24-2022 Summary of episod e note Discharge Instructions Thank you for allowing [facility] to assist you with your healthcare needs. The following is important discharge information regarding your hospital visit. Your Care Team PILAR MARTINS MD What to do next Scheduled Follow-Up Appointments Appointment Type When With Where Contact InformationCV OV 02/14/2022 11:30 AM CYNDEE HANEY APRN-TRISTAN [facility] CV Follow Up Appointments Follow Up with Follow up with primary care provider When Where: Allergies NKA Medications Please ask your primary doctor or pharmacist before taking any other medication not listed, including over the counter drugs, herbal medications, vitamins and or supplements as they may interact with your home medications. What How Much When Instructions Last Dose Changed metoprolol (metoprolol succinate 25 mg oral TABLET extended release) 1 tab(s) by mouth Once a day Do not crush or chew (controlled release) Pickup at [facility]/pharmacy #[id number] Unchanged atorvastatin (Lipitor 20 mg oral tablet) 1 tab(s) by mouth Once a day Unchanged cetirizine (Zyrtec 10 mg oral tablet) 1 tab(s) by mouth Once a day Unchanged cholecalciferol (Vitamin D3) 2000 IU by mouth Once a day Unchanged flecainide (flecainide 100 mg oral tablet) 1 tab(s) by mouth Every 12 hours Unchanged metFORMIN (metFORMIN 500 mg oral tablet (IR)) 4 tab(s) by mouth Daily at bedtime Unchanged rivaroxaban (Xarelto 20 mg oral tablet) See instructions 1 TAB(S) ORAL WITH SUPPER Unchanged semaglutide (Ozempic (0.25 mg or 0.5 mg dose) 2 mg/ 1.5 mL subcutaneous solution) 1 Milligram Subcutaneous Every Friday Unchanged sertraline (sertraline 50 mg oral tablet) 1 tab(s) by mouth Once a day Pharmacy Information [facility]/pharmacy #[id number]: [address] [place], [place] [id number] [phone] What How Much When Comments Stop Taking omega-3 polyunsaturated fatty acids (Fish Oil 1000 mg oral capsule) 1 cap by mouth Two (2) times a day Stop Taking omeprazole (omeprazole 40 mg oral delayed release capsule) 1 cap by mouth Once a day Please take this list to your next doctor s visit. Bring all medications you take, including over the counter medications, herbals and other supplements with you to your doctor s visit. Patients and families are reminded to discard old lists and to update any records with all medication providers or retail pharmacies. Education Materials Moderate Conscious Sedation, Adult, Care After These instructions provide you with information about caring for yourself after your procedure. Your health care provider may also give you more specific instructions. Your treatment has been planned according to current medical practices, but problems sometimes occur. Call your health care provider if you have any problems or questions after your procedure. What can I expect after the procedure? After your procedure, it is common: To feel sleepy for several hours. To feel clumsy and have poor balance for several hours. To have poor judgment for several hours. To vomit if you eat too soon. Follow these instructions at home: For at least 24 hours after the procedure: Do not: ? Participate in activities where you could fall or become injured. ? Drive. ? Use heavy machinery. ? Drink alcohol. ? Take sleeping pills or medicines that cause drowsiness. ? Make important decisions or sign legal documents. ? Take care of children on your own. Rest. Eating and drinking Follow the diet recommended by your health care provider. If you vomit: ? Drink water, juice, or soup when you can drink without vomiting. ? Make sure you have little or no nausea before eating solid foods. General instructions Have a responsible adult stay with you until you are awake and alert. Take avdh-uaf-kexhzgf and prescription medicines only as told by your health care provider. If you smoke, do not smoke without supervision. Keep all follow-up visits as told by your health care provider. This is important. Contact a health care provider if: You keep feeling nauseous or you keep vomiting. You feel light-headed. You develop a rash. You have a fever. Get help right away if: You have trouble breathing. This information is not intended to replace advice given to you by your health care provider. Make sure you discuss any questions you have with your health care provider. Document Released: 12/01/2013 Document Revised: 01/23/2018 Document Reviewed: 06/01/2016 I Had [employer] Patient Education 2020 [employer] CARDIOVERSION Discharge instructions ACTIVITY/SAFETY Please refrain from the following activities for 24 hours: Do not drive a car or operate heavy equipment. Do not consume alcohol for 24 hours. Do not return to work for 24 hours. Postpone signing any important papers or making important decisions. COMFORT Call your primary doctor if you have any redness, tenderness, warmth, discharge or swelling at your IV site. Your chest or back may get red and/or develop a burning sensation. Apply fragrance-free Aloe Vera lotion. Take Tylenol as needed for pain. DIET When you return home, resume your regular diet unless otherwise directed. Some of the sedatives, anesthetic medications you received today may make you nauseated. If vomiting persists, call your doctor. Restart your usual medications unless otherwise instructed by your doctor. If you have any questions, please call your doctor at the number listed on your follow up instructions. Document Released: 02/10/2006 Document Revised: 01/27/2013 Document Reviewed: 02/11/2014 ExitCare Patient Information 2015 [employer]. This information is not intended to replace advice given to you by your health care provider. Make sure you discuss any questions you have with your health care provider. Additional Information VACCINATE! IT SAVES LIVES! Members of the community who have not yet received the COVID-19 vaccine and would like to receive it can visit one of [facility] vaccine clinics. There are many vaccine clinic locations within the [facility]. For locations and available times, please visit [email or web address] It is important to note that some COVID mobile vaccine clinics are held outdoors and may be canceled in rainy or stormy conditions. To learn more about pediatric vaccinations (ages 5-11), we invite you to visit the [facility] webpage. https://[email or web address] [email or web address]-Freq [email or web address]-Pecwieeyp.html To learn more about the COVID-19 vaccine, we invite you to visit the [facility] website for a list of frequently asked questions. [email or web address] requently_[email or web address] [facility] Patient Portal Access Instructions: Stay connected with your healthcare team and access your personal medical information anytime with the [facility] Patient Portal.If you would like a full copy of your medical records, please contact the [facility] Medical Records Department, Friday through Friday between 8a.m. and 4:30p.m. Please follow the directions below to access the portal: 1.Access the email account you provided upon registration to the hospital.2.Look for an invitation email from [facility].3.Open the email and access the invitation link: Accept Invitation to [facility].Fill in the required cool to create your account. Sign into [email or web address].[email or web address] with your username and password that you created in the above steps to stay up to date. You can then view a summary of results, a summary of your visits, and the ability to download your summaries to your computer or send the information securely to a physician. Remember that your healthcare information is confidential, so carefully consider who you will allow to register on the [facility] for access to your information. You can also access the [facility] Portal on the [employer] [email or web address]. Simply click on Health Records under Health Data and then click on the [employer] logo. HOW TO SAFELY DISPOSE OF PRESCRIPTION MEDICATIONS Please use one of the following methods to safely dispose of your unused medications. 1.Use a drug disposal kit: the drug disposal pouch allows you to safely discard your old and unused drugs. Ask your nurse to give you one when you are discharged.2.Visit a local take-back location: Many local pharmacies and police departments have programs that collect old and unwanted prescription drugs. Call your local pharmacy or go to http://[employer]8G7Lg3y to find one close to you.3.Make use of household items: Use cat litter or old coffee grounds to dispose medications if other options are not available. Mix your drugs with these household products, seal them in an airtight container and throw it into the garbage. Call [facility]: [phone] to be sure your drugs can be disposed of in this way. Some medicines may require a different approach.4.Never flush your medications down the toilet. IF YOU HAVE BEEN PRESCRIBED AN OPIOID FOR PAIN If you have been prescribed an opioid (such as hydrocodone, oxycodone or morphine), it is critical to understand the possible side effects and risks of opioid pain medications. Even when taken as directed, opioids can have several side effects including: Tolerance, meaning you might need to take more of a medication for the same pain relief. Nausea, vomiting and/or constipation. Sleepiness, dizziness, dry mouth, confusion, depression or itching. Physical dependence, meaning you have withdrawal symptoms when a medication is stopped, can develop within a few days. KNOW YOUR RESPONSIBILITIES It is important to know exactly how much and how often to take the opioid pain medications you are prescribed. Never take opioids in higher amounts or more often than prescribed. Do not combine opioids with alcohol or other drugs that cause drowsiness, such as benzodiazepines, also known as benzos, including diazepam and alprazolam, muscle relaxants or sleep aids. Never sell or share prescription opioids. This is illegal. Store opioids in a secure place and out of reach of others (including children, family, friends and visitors). The last page of this document has been signed and retained as a CHART COPY. Signatures Patient Education Materials Moderate Conscious Sedation, Adult, Care After 3- Cardioversion (11/2017) (CUSTOM) Medication Leaflets My discharge plan and instructions have been reviewed and explained to me and I,ELLE VANG understand my current condition and have read and understand these discharge instructions. I have received a written copy of the plan/instructions. If I have questions, I am aware that I should contact my doctor. Patient/Olive Pitter Signature: Date/Time: Relationship to Patient: Witness Name/Signature: Date/Time: [facility] 01-24-2022 Discharge summary Procedure: External Cardioversion Indication: atrial fibrillation Condition: Stable Discharge: Home Follow up: 1-2 weeks in office Digitally Signed by ANTHONY RIDDLE MD on 01/24/2022 09:44 AM [facility] 01-24-2022 Note Procedure External cardioversion Indication Atrial fibrillation Post op same Informed consent was obtained. Pads applied anteriorly and posteriorly on chest. Anesthesia was obtained with help of anesthesia team. Patient was shocked with synchronized shock 200J X1. Cardioverted to sinus Sinus rhythm No complications Continue anti coagulation Follow up in clinic 1-2 weeks Digitally Signed by ANTHONY RIDDLE MD on 01/24/2022 09:44 AM [facility] 01-24-2022 Anesthesiology Consult note Patient: ELLE VANG Age: 62 years Sex: Female : 1960 Associated Diagnoses: None Author: BROOKLYN TAVERAS DO Preoperative Information Greater than 6 hours Anesthesia history Patient's history: negative. Family's history: negative. Review of Systems Ear/Nose/Mouth/Throat: Negative except as documented in history of present illness. Respiratory: Negative except as documented in history of present illness. Cardiovascular: Negative except as documented in history of present illness. Gastrointestinal: Negative except as documented in history of present illness. Genitourinary: Negative except as documented in history of present illness. Endocrine: Negative except as documented in history of present illness. Musculoskeletal: Negative except as documented in history of present illness. Integumentary: Negative except as documented in history of present illness. Neurologic: Negative except as documented in history of present illness. Health Status Allergies: Allergic Reactions (Selected) NKA, Allergies (1) ActiveReaction NKANone Documented Current medications: (Selected) Inpatient Medications Ordered Sodium Chloride 0.9% intravenous solution 1,000 mL: Start: 01/24/22 5:00:00 EST, 19 hour(s), Stop date 01/24/22 23:59:00 EST, Rate: 20 mL/hr, 01/24/22 5:00:00 EST Prescriptions Prescribed Lipitor 20 mg oral tablet: Dose : 20 mg = 1 tab(s), Oral, qDay, # 90 tab(s), 3 Refill(s), [id number], 177.8, cm, 11/13/20 14:31:00 EDT, Height, kg, 05/14/21 14:20:00 EDT, Dosing Weight Xarelto 20 mg oral tablet: See Instructions, 1 TAB(S) ORAL WITH SUPPER, # 30 tab(s), 5 Refill(s), Pharmacy: [id number], 177.8, cm, 11/13/20 14:31:00 EDT, Height, 106, kg, 05/14/21 14:20:00 EDT, Dosing Weight flecainide 100 mg oral tablet: Dose : 100 mg = 1 tab(s), Oral, q12h, # 60 tab(s), 5 Refill(s), [id number], 177.8, cm, 12/10/21 14:00:00 EDT, Height metoprolol tartrate 25 mg oral tablet: Dose : 25 mg = 1 tab(s), Oral, qDay, # 90 tab(s), 3 Refill(s), Pharmacy: [id number], 177.8, cm, 11/13/20 14:31:00 EDT, Height, kg, 11/13/20 14:31:00 EDT, Dosing Weight Documented Medications Documented Ozempic (0.25 mg or 0.5 mg dose) 2 mg/1.5 mL subcutaneous solution: Dose : 1 mg =, Subcutaneous, Friday, 0 Refill(s) Zyrtec 10 mg oral tablet: Dose : 10 mg = 1 tab(s), Oral, qDay metFORMIN 500 mg oral tablet (IR): Dose : 2,000 mg = 4 tab(s), Oral, qHS, 0 Refill(s) omeprazole 40 mg oral delayed release capsule: Dose : 40 mg = 1 cap(s), Oral, qDay, # 30 cap(s), 0 Refill(s) sertraline 50 mg oral tablet: Dose : 50 mg = 1 tab(s), Oral, qDay, 0 Refill(s), Medications (1) Active Scheduled: (0) Continuous: (1) NS (0.9% nacl) 1,000 mL 1,000 mL, Intravenous, 20 mL/hr PRN: (0) Problem list: Medical Chest pain in adult / SNOMED CT 38959421 / Confirmed JAVED - Obstructive sleep apnoea / SNOMED CT 8751992708 / Confirmed PAF - Paroxysmal atrial fibrillation / SNOMED CT 941615145 / Confirmed Palpitations / SNOMED CT 773569787 / Confirmed SOB - Shortness of breath / SNOMED CT 863203020 / Confirmed Tinnitus / SNOMED CT 354940401 / Confirmed PVCs (premature ventricular contractions) / SNOMED CT 99940299 / Confirmed, Active Problems (8) Chest pain in adult JAVED - Obstructive sleep apnoea PAF - Paroxysmal atrial fibrillation Palpitations PVCs (premature ventricular contractions) SOB - Shortness of breath Tinnitus Tobacco use Histories Past Medical History: No active or resolved past medical history items have been selected or recorded. Family History: Heart attack Brother Procedure history: EKG ([id number]) on 02/02/2018 at 58 Years. Comments: 04/20/2019 10:14 Tia Caldwell MA (ABR-OE) Sinus Victor M 58 BPM Echocardiogram ([id number]) on 05/23/2016 at 56 Years. Comments: 04/20/2019 10:10 Tia Caldwell MA (ABR-OE) Normal wall motion. There is mild LV dilatation. EF is 55-60%. Left atrial enlargement. Mild to moderate mitral regurgitation. Mild tricuspid regurgitation. Cardiovascular stress testing ([id number]) on 02/01/2015 at 55 Years. Comments: 04/20/2019 10:13 Tia Caldwell MA (ABR-OE) Small anterior apical scar, no reversible ischemia. Evidence of right ventricular strain suggestive of elevated right ventricular pressure. Normal wall motion. Calculated EF 72%. BP response to exercise was normal. Overallexercise tolerance for patient's age is poor, at approsimately 5 METS, [place] [employer] Class II. There are frequent PVC's and PAC's noted. Hysterectomy ([id number]). Hiatus hernia repair ([id number]). Colonoscopy ([id number]). Social History Social & Psychosocial Habits Alcohol 04/20/2019 Use: Current Type: Wine Frequency: 1-2 times per month 04/27/2019 Use: Past Tobacco 04/20/2019 Tobacco Use: 5-9 cigarettes (between 1 04/27/2019 Tobacco Use: 10 or more cigarettes (1/ Nutrition/Health 04/27/2019 Caffeine intake amount: 2 cups daily . Physical Examination General: Alert and oriented. Airway: Normal temporomandibular joint mobility, Normal mouth, Normal throat, Normal neck range of motion, Trachea midline. Mallampati classification: II (soft palate, fauces, uvula visible). Head: Normocephalic. Dentition Evaluation: Intact, Own teeth, Denies loose/chipped teeth. Neck: Supple. Respiratory: Lungs are clear to auscultation, Respirations are non-labored. Cardiovascular: Normal rate, Regular rhythm, No murmur. Heart Sounds: Normal. Gastrointestinal: Soft. Musculoskeletal Normal range of motion. Integumentary: Intact, Warm, Dry. Neurologic: Alert, Oriented. Review / Management Results review: Lab results: 01/24/2022 5:00 EST Electrocardiogram - EKG - CV Ordered (In Progress) . Assessment and Plan [place] [employer] Anesthesiologists (ASA) physical status classification: Class IV. Anesthetic Preoperative Plan Premedication: intravenous. Anesthetic technique: General. Induction: intravenously. Maintenance airway: Mask. Special techniques: Warming device. Special Monitoring. Postoperative pain management: Per surgeon. Risks discussed: nausea, vomiting, headache, sore throat, dental injury, hypotension, allergic reaction, serious complications. Informed consent: signed by patient. Beta Susan: Beta Susan Taken Within 24 Hrs: Yes. Digitally Signed by BROOKLYN TAVERAS DO on 01/24/2022 06:39 AM [facility] Evaluation + Plan note Future Appointments Appointment Date:12/20/2021 10:00:00 AM Scheduled Provider: Location:[facility] Appointment Type:CV Nurse EKG Appointment Date:12/25/2021 10:00:00 AM Scheduled Provider: Location:[facility] Appointment Type:CV Procedure - AO Echo Appointment Date:01/10/2022 11:00:00 AM Scheduled Provider:CYNDEE GOLDBERG Location:[facility] Appointment Type:CV OV Diagnostic Tests PendingThyroxine 12/10/21 [facility] Evaluation + Plan note Future Appointments Appointment Date:01/03/2022 10:00:00 AM Scheduled Provider: Location:[facility] Appointment Type:CV Nurse EKG Appointment Date:01/10/2022 11:00:00 AM Scheduled Provider:CYNDEE GOLDBERG Location:[facility] Appointment Type:CV OV [facility] Evaluation + Plan note Future Appointments Appointment Date:02/14/2022 11:30:00 AM Scheduled Provider:CYNDEE GOLDBERG Location:[facility] Appointment Type:[facility] Evaluation + Plan note Future Appointments Appointment Date:06/18/2022 11:00:00 AM Scheduled Provider:CYNDEE GOLDBERG Location:[facility] Appointment Type: OV [facility] Evaluation + Plan note Future Appointments Appointment Date:06/28/2022 09:30:00 AM Scheduled Provider:HASEEB SLOANO Location:[facility] Appointment Type:PC Wellness Female Appointment Date:01/08/2023 11:00:00 AM Scheduled Provider:CYNDEE GOLDBERG Location:[facility] Appointment Type:CV OV Future Scheduled TestsMA Mammo Screening Bilateral w/ Tan 06/17/22 [facility] Evaluation + Plan note Future Appointments Appointment Date:10/31/2022 10:00:00 AM Scheduled Provider:FROILAN BLAND PA-C Location:[facility] Appointment Type:PC OV Appointment Date:01/08/2023 11:00:00 AM Scheduled Provider:CYNDEE GOLDBERG Location:[facility] Appointment Type:CV OV Future Scheduled TestsAlbumin/Creatinine Ratio, Random Urine 9/9/23MA Mammo Screening Bilateral w/ Tan 06/17/22 [facility] Evaluation + Plan note Future Appointments Appointment Date:01/08/2023 11:00:00 AM Scheduled Provider:CYNDEE GOLDBERG Location:[facility] Appointment Type:CV OV Appointment Date:01/30/2023 10:30:00 AM Scheduled Provider:FROILAN BLAND PA-C Location:[facility] Appointment Type:PC OV Future Scheduled TestsAlbumin/Creatinine Ratio, Random Urine 9/7/23MA Mammo Screening Bilateral w/ Tan 06/17/22 [facility] Evaluation + Plan note Future Appointments Appointment Date:02/27/2023 04:00:00 PM Scheduled Provider:FROILAN BLAND PA-C Location:[facility] Appointment Type:PC OV Appointment Date:07/22/2023 11:00:00 AM Scheduled Provider:CYNDEE GOLDBERG Location:[facility] Appointment Type:CV OV Future Scheduled TestsAlbumin/Creatinine Ratio, Random Urine 9/7/23MA Mammo Screening Bilateral w/ Tan 06/17/22 [facility] Hospital course Narrative No data available for this section [facility] Hospital Discharge instructions No data available for this section [facility] Progress note No data available for this section [facility] Summary Purpose Family History No Family History Records FoundNo Family History Records Found No data available for this section No data available for this section No data available for this section No Family History Records Found Advance Directives No Advanced Directives Records FoundNo Advanced Directives Records FoundNo Advanced Directives Records Found Additional Source Comments INFORMATION SOURCE (unrecogn ized section and content) DATE CREATED AUTHOR AUTHOR'S ORGANIZ ATION 11/16/2019 [facility] DATE CREATED AUTHOR AUTHOR'S ORGANIZ ATION 02/23/2023 [facility] Care Team (unrecognized sect ion and content) Care Team Personnel Name: PILAR MARTINS MD Member Role: Primary Care Physician Address: Address: [address] [place] [address] Care Team Related Persons Name: YANELY ZAMBRANO Care Team Personnel Name: PILAR MARTINS MD Member Role: Primary Care Physician Address: Address: [address] [place] [address] Care Team Related Persons Name: YANELY ZAMBRANO Care Team Personnel Name: PILAR MARTINS MD Member Role: Primary Care Physician Address: Address: [address] [place] [address] Care Team Related Persons Name: SYLVIE ZAMBRANO Care Team Personnel Name: PILAR MARTINS MD Member Role: Primary Care Physician Address: Address: [address] [place] [address] Care Team Related Persons Name: SYLVIE ZAMBRANO Care Team Personnel Name: PILAR MARTINS MD Member Role: Primary Care Physician Address: Address: [address] [place] [address] Care Team Related Persons Name: SYLVIE ZAMBRANO Patient Care team informatio n (unrecognized section and content) Care Team Personnel Name: VACCARELLI, FROILAN PA-C Position: P4 Advanced Library Clerk Member Role: Primary Care Physician Address: Address: [address] [place] [address]- Care Team Related Persons Name: ZAMBRANOSYLVIE Care Team Personnel Name: FROILAN BLAND PA-C Position: P4 Advanced Library Clerk Member Role: Primary Care Physician Address: Address: [address] [place] [address] Care Team Related Persons Name: SYLVIE ZAMBRANO Care Team Personnel Name: FROILAN BLAND PA-C Position: P4 Advanced Library Clerk Member Role: Primary Care Physician Address: Address: [address] [place] [address]- Care Team Related Persons Name: SYLVIE ZAMBRANO Care Team Personnel Name: FROILAN BLAND PA-C Position: P4 Advanced Library Clerk Member Role: Primary Care Physician Address: Address: [address] [place] [address] Name: Asya Cabral RN Position: AO RN Member Role: RN Name: KARINE BOWMAN MD Position: ED Physician Member Role: ED Physician Address: Address: [address] [place] [id number]- Care Team Related Persons Name: JUAN MANUELSYLVIE FOR RECORDS PERTAINING TO PATIENTS WHO ARE OR HAVE BEEN ENROLLED IN A CHEMICAL DEPENDENCY/SUBSTANCEABUSE PROGRAM, SOME INFORMATION MAY BE OMITTED. This clinical summary was aggregated from multiple sources. Caution should be exercised in using it in the provision of clinical care. This summary normalizes information from multiple sources, and as a consequence, information in this document may materially change the coding, format and clinical context of patient data. In addition, data may be omitted in some cases. CLINICAL DECISIONS SHOULD BE BASED ON THE PRIMARY CLINICAL RECORDS. [facility] [employer] provides no warranty or guarantee of the accuracy or completeness of information in this document.
--- NOTE | 2023-03-01 11:18 | NURSING ---
NO OLD EKGS
[2023-03-01 11:25] LABS: Absolute Lymphocyte Count 2.44 X10^3/uL (0.83-4.51); Absolute Neutrophil Count 4.2 X10^3/uL (2.0-7.7); Basophil# 0.04 X10^3/uL; Basophil% 0.6 % (0-1); Eosinophil# 0.16 X10^3/uL; Eosinophils% 2.2 % (0-5); Hematocrit 38.1 % (37-47); Lymphocyte # 2.44 X10^3/ul (0.83-4.51); Lymphocyte % 33.8 % (19-41); Mean Corp Hgb Conc 31.5 g/dL (32-36); Mean Corpuscular Hgb 27.4 pg (27.0-32.0); Mean Platelet Vol. 9.4 fl (6.2-12.0); Monocyte# 0.35 X10^3/uL; Monocyte% 4.8 % (0-10); NRBC Flagged by Analyzer 0 % (0-5); Neutrophil # 4.21 X10^3/uL (2.7-7.7); Neutrophil % 58.3 % (47-70); Platelet Count 251 K/mm3 (150-450); RBC Distribution Width CV 13.4 % (11.6-14.6); RBC Distribution Width SD 42.6 fl (35.1-43.9); Red Blood Count 4.38 M/mm3 (4.2-5.4); White Blood Count 7.2 K/mm3 (4.4-11.0)
[2023-03-01 11:37] LABS: Anion Gap 4 (5-15); BUN 16 mg/dL (7-18); BUN/Creat Ratio 17.7 RATIO (10-20); Calcium,Total 9.9 mg/dL (8.5-10.1); Chloride 106 mmol/L (98-107); EST Glomerular Filtration Rate 67 mL/min (>60); Est Glom Filt Rate - Afr Amer 81 mL/min (>60); Estimated Creatinine Clearance 70.09 ml/min; Glucose 281 mg/dL (74-106); Potassium 4.1 mmol/L (3.5-5.1); Sodium Level 138 mmol/L (136-145); Troponin-I HS 3 pg/mL (3.0-54.0)
--- NOTE | 2023-03-01 11:40 | RAD_ITS ---
INDICATION: chest pain EXAMINATION/TECHNIQUE: X-RAY - XR Chest 1 View COMPARISON: No relevant prior comparison study available FINDINGS: LINES/DEVICES: None. LUNGS: No consolidation, edema or effusion. No pneumothorax. MEDIASTINUM AND CARDIOVASCULAR STRUCTURES: Cardiac silhouette not enlarged. Central airways and mediastinal contour are unremarkable. BONES AND SOFT TISSUES: Unremarkable. RAD/Chest 1 View (Portable) IMPRESSION: No radiographic evidence of acute cardiopulmonary disease. Electronically Signed: Rafi Zamarripa MD at 12:15 EST ,
[2023-03-01 11:54] VITALS: BP 148/104; BP 151/92; BP 169/95; PULSE 101; PULSE 81; PULSE 90
[2023-03-01 12:16] LABS: Magnesium 1.5 mg/dL (1.6-2.6)
[2023-03-01 13:21] VITALS: PULSE 82
== END 2023-03-01 13:22 | disposition home or self-care (01) ==
PROVIDERS: Physician Assistant; Emergency Provider Emergency Medicine; Visit Provider Emergency Medicine
DX: R42 Dizziness and giddiness (principal); I48.0 Paroxysmal atrial fibrillation; E11.9 Type 2 diabetes mellitus without complications; Z87.891 Personal history of nicotine dependence; F41.9 Anxiety disorder, unspecified; Z79.01 Long term (current) use of anticoagulants; I10 Essential (primary) hypertension; E78.5 Hyperlipidemia, unspecified; Z79.899 Other long term (current) drug therapy; Z79.84 Long term (current) use of oral hypoglycemic drugs; Z90.49 Acquired absence of other specified parts of digestive tract; Z90.710 Acquired absence of both cervix and uterus
CPT/HCPCS: 71045; 80048; 83735; 84484; 85025; 93005; 99285; A4216